=== PATIENT | female | born 1960 | race Caucasian/White ===

== ENCOUNTER 2016-04-14 17:00 | Emergency (ER) | payer OTHER ==
[~2016-04-14] VITALS: Ht 167.6 cm; Wt 89.8 kg
[~2016-04-14 17:00] MED LIST: AMBIEN (MONOGRAP5 MG PO; AMBIEN5 M1 PO; AMLODIPINE10 MG PO; ASPIRIN FOR CHI81 MG PO; BISACODYL10 MG PR; CALCIUM 600600 M1 PO; CARBIDOPA/LEVOD1 TA1 PO; CLONAZEPAM0.5 MG PO; CLOPIDOGREL75 MG PO; COLCHICINE0.6 MG PO; COQ10 IN OIL 101 SGL PO; COREG25 M1 PO; COZAAR50 M1 PO; DIOVAN320 MG PO; ESCITALOPRAM10 MG PO; ESCITALOPRAM20 MG PO; FERROUS SULFATE27 MG PO; HYDRALAZINE100 MG PO; HYDROXYCHLOROQ200 M1 PO; HYDROXYCHLOROQ200 MG PO; KEPPRA500 M1 PO; LASIX40 MG PO; LESCOL XL80 MG PO; LEVSIN0.125 MG PO; LIPITOR40 M1 PO; LIPOFLAVONOID1 TAB PO; MERCAPTOPURINE50 MG PO; MULTIVITAMIN1 TAB PO; NEUPRO3 MG/24 HR TOP; NORVASC10 M1 PO; NOVOLOG100 U/ML SC; PERCOCET 325 MG1 TA2 PO; PROAIR HFA8.5 GM INH; PROBIOTICA100 Millio PO; PROTONIX40 MG PO; RENAGEL 800MG800 MG PO; REQUIP1 MG PO; SYMBICORT 80/4.1 PUF INH; SYNTHROID0.088 MG PO; SYNTHROID88 MCG PO; TRANDATE-NORMO200 MG PO; UROCIT-K 1010 MEQ PO; UROCIT-K15 MEQ PO; VICTOZA6 MG/ML SC; VITAMIN B11000 MCG/M IM; VITAMIN B625 MG PO; VITAMIN C500 M3 PO; VITAMIN D1000 IU PO; VITAMIN D5000 IU PO; VITAMIN D50000 IU PO
--- NOTE | 2016-04-14 17:03 | ED UPPER/LOWER EXTREMITY COMPL ---
See Addendum History of Present Illness General Chief Complaint: Lower Extremity Problems Stated Complaint: BIBA FOR KNEE PAIN Source: patient, family, old records Exam Limitations: no limitations Vital Signs & Intake/Output Vital Signs & Intake/Output Vital Signs Date Time Temp Pulse Resp B/P Pulse O2 O2 Flow FiO2 Ox Delivery Rate 04/15 1017 97.1 64 16 128/76 97 Room Air 04/15 0828 135/70 04/15 0806 97.0 74 134/85 04/15 0806 134/85 04/15 0743 97.6 66 18 134/85 96 04/14 2239 97.8 52 18 145/64 95 Room Air 04/14 2133 Room Air 04/14 2030 98.6 54 18 158/70 95 Room Air 04/14 1804 97 Room Air 04/14 1704 97.6 57 16 130/83 97 Room Air ED Intake and Output 04/15 0000 04/14 1200 Intake Total Output Total Balance Patient 198 lb Weight Allergies Coded Allergies: Penicillins (Intermediate, RASH 06/05/15) erythromycin base (Intermediate, ANAPHYLAXIS 06/05/15) vancomycin (Intermediate, WHEEZING 06/05/15) Reconcile Medications Albuterol Sulfate (Proair Hfa) 0.09 MG/Actuation GA 1-2 INH INH Q4-6 PRN PRN SOB (Reported) Amlodipine (Norvasc 10MG) 10 MG TAB 1 TAB PO DAILY HYPERTENSION (Reported) Ascorbate Calcium (Vitamin C) 500 MG TABLET 1 TAB PO D HEALTH SUPPLEMENT ( Reported) Atorvastatin Calcium (Lipitor) 40 MG TAB 1 TAB PO 17:00 CHOLESTEROL (Reported ) Calcium Carbonate (Calcium) 600 MG (1,500 MG) TABLET 1 TAB PO D HEALTH SUPPLEMENT (Reported) Carbidopa/Levodopa (Carbidopa-Levodopa 25-100 Tab) 25 MG/100 MG TAB 1 TAB PO TID RESTLESS LEG SYNDROME (Reported) Carvedilol (Coreg) 25 MG TAB 1 TAB PO BID HYPERTENSION (Reported) CHOLECALCIFEROL (VITAMIN D3) (Vitamin D3) 5,000 IU CAP 1 CAP PO BID VITMIN D DEFICIENCY (Reported) Cholecalciferol (Vitamin D3) (Vitamin D) 10,000 UNIT CAPSULE 1 TAB PO Q 2 WEEKS HEALTH SUPPLEMENT (Reported) Clonazepam 0.5 MG TAB 1 TAB PO AT BEDTIME INSOMNIA (Reported) Escitalopram Oxalate 20 MG TAB 1 TAB PO DAILY DEPRESSION (Reported) Hydralazine Hydrochloride (Hydralazine) 100 MG TAB 1 TAB PO BID HYPERTENSION (Reported) Hydroxychloroquine Sulfate 200 MG TAB 1 TAB PO DAILY SLE (Reported) Levetiracetam (Keppra) 500 MG TAB 1 TAB PO DAILY SEIZURE (Reported) Levothyroxine Sodium (Synthroid) 0.088 MG TAB 0.088 MG PO DAILY AC HYPOTHYROID (Reported) Losartan (Cozaar) 50 MG TAB 1 TAB PO DAILY HYPERTENSION (Reported) Multivitamin (Multivitamins) 1 EACH CAPSULE 1 TAB PO D HEALTH SUPPLEMENT ( Reported) ROPINIROLE HCL (Requip) 1 MG TAB 1 TAB PO AT BEDTIME RESTLESS LEG SYMDROME ( Reported) Rotigotine (Neupro) 3 MG/24 HOUR PATCH.TD24 1 PATCH EXT D RESTLESS LEGS ( Reported) Ubidecarenone (Co Q-10) 100 MG CAPSULE 1 TAB PO D HEALTH SUPPLEMENT (Reported ) Zolpidem Tartrate 10 MG TAB 1 TAB PO AT BEDTIME INSOMNIA (Reported) Triage Nurses Notes Reviewed? yes Onset: Abrupt Duration: constant Timing: recent history Severity: severe Severity Numbers: 10 HPI: Patient is a 55-year-old female who with a past medical history of hypothyroidism, lupus, CKD, hypertension, stroke, seizure, depression, restless leg syndrome, asthma and a total knee replacement to left knee in which patient received 2 left knee revisions performed by Dr. TODD in which patient states that she also had a syncopal episode approximately 18 months ago where she fractured her left hip in which the surgical intervention was performed by orthopedic DR. HUBER MD. Patient states that since she's had left knee and hip instability and discomfort and pain in which yesterday at 5 AM at her house she was ambulating she misstepped and fell to the left lateral aspect of her body striking the left leg and left upper extremity and left aspect of her head to the ground and table. Patient denies any preceding episode of dizziness or lightheaded sensation. Denies any loss of consciousness. Patient did follow up with orthopedic DR. EBONY MD yesterday in his office and received x-rays of the left lower extremity and left upper extremity with unremarkable acute findings. Patient was given Tylenol with Codeine which has not relieved her symptoms. Patient was brought in by ambulance for no relief of pain. Patient denies any fall since her evaluation by orthopedic doctor. Patient currently denies any illness and is otherwise without complaints Patient is very concerned of living alone and having to use approximate 20 steps to enter her private residence and due to her significant pain symptoms. (AMARA OLEARY) Past History Travel History Traveled to [place] past 21 day No Medical History Any Pertinent Medical History? see below for history Neurological: restless leg syndrome Cardiovascular: hypertension, Renal artery stenosis; s/p stent; one functioning kidney Renal: 1 KIDNEY Musculoskeletal: LEFT KNEE REPLACMENT X 2 Blood Disorders: LUPUS Other Medical Hx: LUCA SKIN CANCER, SLE History of MRSA: No History of VRE: No History of CDIFF: No Pneumonia Vaccine: 01/14/13 Influenza Vaccine: 12/13/14 Surgical History Surgical History: cholecystectomy, knee replacement, open reduction and internal fixation of the left hip BACK SURGERY Psychosocial History Who do you live with Patient/Self Services at Home Nursing, Occupational Therapy, Physical Therapy, Speech Therapy What is your primary language [place] Family History Family History, If Any: FATHER, , Age 60+. FH: myocardial infarction BROTHER CABG UNCLE FH: lung cancer MOTHER (DIABETES, BRAIN TUMOR). Relation not specified for: FHx: diabetes mellitus Hx Contributory? No (AMARA OLEARY) Review of Systems Review of Systems Constitutional: Reports: no symptoms. EENTM: Reports: no symptoms. Respiratory: Reports: no symptoms. Cardiovascular: Reports: no symptoms. Gastrointestinal/Abdominal: Reports: no symptoms. Genitourinary: Reports: no symptoms. Musculoskeletal: Reports: see HPI, joint pain, muscle pain. Skin: Reports: no symptoms. Neurological/Psychological: Reports: no symptoms. Hematologic/Endocrine: Reports: no symptoms. Immunological: Reports: no symptoms. All Other Systems: Reviewed and Negative (AMARA OLEARY) Physical Exam Physical Exam General Appearance: moderate distress Neurologic/Tendon: normal sensation, normal tendon functions, responds to pain, no evidence tendon injury, no pulse deficit Skin: intact, warm/dry Comments: HEENT: extraocular motion intact, no nystagmus. Pupils equally round and reactive to light and accommodation. Nose is atraumatic. External auditory canal and Tympanic membranes clear. Pharynx normal. No swelling or edema. Head-contusion noted to left lateral aspect of orbit no step-off deformity Neck: Supple, no lymphadenopathy, normal range of motion without pain or tenderness Back: Nontender, no CVA tenderness. Cardiovascular: Regular rate and rhythms no murmurs rubs or gallops, normal JVP Respiratory: Chest nontender. No respiratory distress.breath sounds clear to auscultation bilaterally Abdomen: Soft, nontender nondistended, no appreciable organomegaly. Normal bowel sounds. No ascites Extremity: normal and equal pulses. Left upper extremity generalized severe point tenderness noted, decreased active range of motion noted Dermatomes intact radial pulse +2 Left lower extremity generalized severe point tenderness noted, patient unable to perform straight leg raise decreased generalized active range of motion noted due to pain No pedal edema NON- tender gastrocnemius Dermatomes intact radial pulse +2 capillary refill intact less than 2 seconds Neuro: Alert oriented x3, motor sensory normal, Skin: No appreciable rash on exposed skin, skin is warm and dry. Psych: Mood and affect is normal, memory and judgment is normal. (EZIO HERNANDEZ,AMARA) Progress Differential Diagnosis: arterial insufficiency, cellulitis, CHF, compartment syndrome, contusion, dislocation, DVT, fracture, gout, septic arthritis, sprain, tendon injury Plan of Care: Orders Procedure Date/time Status Regular Diet 04/15 L Active CASE MANAGEMENT CONSULT 04/15 0704 Active PT Evaluate & Treat 04/15 0700 Active BASIC METABOLIC PANEL 04/15 0700 Complete Theraputic Activities 15 Min 04/15 UNK Complete PT EVAL MOD COMPLEX 30 MIN 04/15 UNK Complete Mitchell, Insertion/Removal/Asses 04/14 202 Active COMPREHENSIVE METABOLIC PANEL 04/14 1731 Complete CBC WITHOUT DIFFERENTIAL 04/14 1731 Complete EKG 04/14 1731 Active Current Medications Sig/Kathy Start time Last Medication Dose Stop Time Status Admin Morphine Sulfate 6 MG ONCE ONE 04/14 194 CAN (Morphine) 04/14 1946 Laboratory Tests 04/15/16 0642: Anion Gap 14, Estimated GFR 18 L, BUN/Creatinine Ratio 19.6, Glucose 67, Calcium 7.9 L 04/14/16 1756: Anion Gap 14, Estimated GFR 18 L, BUN/Creatinine Ratio 19.6, Glucose 102 H, Calcium 8.0 L, Total Bilirubin 0.8, AST 13 L, ALT 15, Alkaline Phosphatase 83, Total Protein 5.7 L, Albumin 2.8 L, Globulin 2.9, Albumin/Globulin Ratio 1.0 L, CBC w Diff NO MAN DIFF REQ, RBC 3.66 L, MCV 82.1, MCH 26.9 L, RDW 16.7 H, MPV 8.9, Gran % 85.2 H, Lymphocytes % 2.8 L, Monocytes % 11.4 H, Eosinophils % 0.5, Basophils % 0.1, Absolute Granulocytes 7.0 H, Absolute Lymphocytes 0.2 L, Absolute Monocytes 0.9 H, Absolute Eosinophils 0, Absolute Basophils 0, PUBS MCHC 32.8 L Patient currently is neurovascular intact to left upper and lower extremities. I discussed with Dr. Quigley patient's evaluation yesterday in which she received left upper extremity x-rays with unremarkable findings and only a left knee x- ray with unremarkable findings. Patient had unremarkable images for patients pain complaints. Patient was unable to move her left lower extremity and left upper extremity due to severe pain. Pain medications was administered in the IV which patient did state that she had relief however still unable to move. Patient was staying overnight in the emergency room and will be reevaluated by physical therapy for possible long -term placement. Discussed disposition plan with case management who evaluate patient as well tomorrow when physical therapy assesses patient. Patient currently is in no apparent distress resting comfortably on her bed. Discussed disposition plan with patient and family member who agrees Discussed hand off with Dr. Cornell who is aware of disposition and plan physical therapy was ordered. (EZIO HERNANDEZ,AMARA) Diagnostic Imaging: Viewed by Me: Radiology Read, CT Scan. Radiology Impression: no acute abnormality Initial ED EKG: SINUS RHYTHM NOTED 55 BPM WITH RBBB Hand-Off Endorsed To: TAQUERIA CORNELL MD Endorsed Time: 0100 Pending: consult Comments: PATIENT: BHARATI VELAZQUEZ PRESENT AGE: 55 PATIENT ACCOUNT NO: [id number] : 59 LOCATION: [facility] ORDERING PHYSICIAN: AMARA HERNANDEZ SERVICE DATE: 04/14/16 EXAM TYPE: CAT - CT PELVIS WO IV CONTRAST EXAMINATION: CT PELVIS WITHOUT CONTRAST CLINICAL INFORMATION: Fall. Hip pain. Pelvic pain. COMPARISON: CT scan abdomen pelvis 04/02/2014. Abdomen, 08/05/2015. TECHNIQUE: Axial images obtained through the pelvis. Coronal and sagittal reformatted images performed at CT scanner DLP: 1471.73 mGy-cm. FINDINGS: Status post ORIF with gamma nail of the left hip. There is streak artifact from the orthopedic hardware. No acute fracture. Left hip fracture is healed. There is old ossifications adjacent to the inferior humeral head and neck and adjacent to the greater trochanter. No focal fluid collections or hematoma. No fracture of the pelvis or right hip. No focal bone lesion. Joint spaces of hips are normal. Sacroiliac joints are normal. There is degenerative disc disease of lower lumbar spine with disc height narrowing and facet joint arthrosis. Vacuum disc phenomena L4-L5. No intrapelvic abnormality. No abnormally dilated bowel loops. No free air or free fluid. Bladder is unremarkable. Vascular wall calcifications of aorta and iliac vessels. IVC filter present partially imaged. IMPRESSION: Status post ORIF left hip. No acute fracture. PATIENT: BHARATI VELAZQUEZ PRESENT AGE: 55 PATIENT ACCOUNT NO: [id number] : 58 LOCATION: [facility] ORDERING PHYSICIAN: AMARA HERNANDEZ SERVICE DATE: 04/14/16 EXAM TYPE: RAD - XRY-ANKLE 3 OR MORE VIEWS L EXAMINATION: XR ANKLE, LEFT CLINICAL INFORMATION: Fall. Left leg pain. COMPARISON: None TECHNIQUE: AP, lateral, and mortise views of the left ankle. FINDINGS: No fracture. No dislocation. Ankle mortise is congruent. IMPRESSION: No acute abnormality of the left ankle. (AMARA OLEARY) Departure Departure Disposition: STILL A PATIENT Condition: Stable Clinical Impression Primary Impression: Left leg pain Secondary Impressions: Facial contusion, Fall, Left upper arm pain, Renal failure Referrals: AMIRAH ELAINE,FRANCISCO Stover (PCP/Family) Departure Forms: Customer Survey General Discharge Information (AMARA OLEARY) PA/PRODUCTION LINE SOLDERER Co-Sign Statement Statement: ED Attending supervision documentation- [] I saw and evaluated the patient. I have also reviewed all the pertinent lab results and diagnostic results. I agree with the findings and the plan of care as documented in the PA's/PRODUCTION LINE SOLDERER's documentation. X] I have reviewed the ED Record and agree with the PA's/PRODUCTION LINE SOLDERER's documentation. [] Additions or exceptions (if any) to the PAs/PRODUCTION LINE SOLDERER's note and plan are summarized below: [] (HERON ELAINE,TAQUERIA Israel) PA/PRODUCTION LINE SOLDERER Co-Sign Statement Statement: ED Attending supervision documentation- [X] I saw and evaluated the patient. I have also reviewed all the pertinent lab results and diagnostic results. I agree with the findings and the plan of care as documented in the PA's/PRODUCTION LINE SOLDERER's documentation. [X] I have reviewed the ED Record and agree with the PA's/PRODUCTION LINE SOLDERER's documentation. [] Additions or exceptions (if any) to the PAs/PRODUCTION LINE SOLDERER's note and plan are summarized below: [Patient continues to have severe pain in her left knee. Patient attempted to ambulate with nursing this morning but she was unable to bear any weight on her left leg. Patient has had 2 prior knee replacements and had x-rays at Celso Simpson MD's office earlier this week for this pain. Patient had fallen. Patient hit her head when she fell 3 days ago. Denies any loss of consciousness. Patient denies any headache or blurry vision after the fall. Patient did hit her head on a chair on the way down and she has ecchymosis above her left eye. There is no step off. Her pupils are equal and reactive to light. Patient is waiting case management evaluation. Given IV morphine for pain control.] (MAURICIO ELAINE,ANABEL Romero) PA/PRODUCTION LINE SOL[employer]ER Co-Sign Statement Statement: ED Attending supervision documentation- [] I saw and evaluated the patient. I have also reviewed all the pertinent lab results and diagnostic results. I agree with the findings and the plan of care as documented in the PA's/PRODUCTION LINE SOLDERER's documentation. [X] I have reviewed the ED Record and agree with the PA's/PRODUCTION LINE SOLDERER's documentation. [] Additions or exceptions (if any) to the PAs/PRODUCTION LINE SOLDERER's note and plan are summarized below: [] (AURELIANO ELAINE,PORSCHE)
[2016-04-14 18:07] LABS: ABSOLUTE BASOPHIL COUNT 0 /CUMM (0.0-0.2); ABSOLUTE EOSINOPHIL COUNT 0 /CUMM (0.0-0.7); ABSOLUTE LYMPH COUNT 0.2 /CUMM (1.2-3.4); ABSOLUTE MONOCYTE COUNT 0.9 /CUMM (0.10-0.60); BASOPHIL % 0.1 % (0.0-2.0); EOSINOPHIL % 0.5 % (0-5); MEAN CORPUSCULAR HGB 26.9 PG (27.0-31.0); MEAN CORPUSCULAR HGB CONC 32.8 G/DL (33.0-37.0); MEAN CORPUSCULAR VOLUME 82.1 FL (81.0-99.0); MEAN PLATELET VOLUME 8.9 FL (7.4-10.4); PLATELET COUNT 229 /CUMM (130-400); RBC DISTRIBUTION WIDTH 16.7 % (11.5-14.5); RED BLOOD CELL CT 3.66 /CUMM (4.20-5.40); WHITE BLOOD CELL COUNT 8.3 /CUMM (4.8-10.8)
[2016-04-14 18:21] LABS: GRANULOCYTE % 85.2 % (42.2-75.2)
[2016-04-14] MEDS ORDERED: MULTIVITAMINS1 EAC8 PO (18:47)
[2016-04-14] MEDS ORDERED: CALCIUM600 M2 PO (18:50)
[2016-04-14] MEDS ORDERED: CO Q-10100 MG PO (18:51)
[2016-04-14] MEDS ORDERED: NEUPRO1 EAC5 EXT (18:57)
[2016-04-14] MEDS ORDERED: VITAMIN D10000 UNIT PO (18:59)
[2016-04-14] MEDS ORDERED: VITAMIN C500 M6 PO (19:00)
--- NOTE | 2016-04-14 19:09 | RADIOLOGY REPORT ---
EXAMINATION: XR ANKLE, LEFT CLINICAL INFORMATION: Fall. Left leg pain. COMPARISON: None TECHNIQUE: AP, lateral, and mortise views of the left ankle. FINDINGS: No fracture. No dislocation. Ankle mortise is congruent. IMPRESSION: No acute abnormality of the left ankle.
--- NOTE | 2016-04-14 20:02 | CT SCAN REPORT ---
EXAMINATION: CT PELVIS WITHOUT CONTRAST CLINICAL INFORMATION: Fall. Hip pain. Pelvic pain. COMPARISON: CT scan abdomen pelvis 04/02/2014. Abdomen, 08/05/2015. TECHNIQUE: Axial images obtained through the pelvis. Coronal and sagittal reformatted images performed at CT scanner DLP: 1471.73 mGy-cm. FINDINGS: Status post ORIF with gamma nail of the left hip. There is streak artifact from the orthopedic hardware. No acute fracture. Left hip fracture is healed. There is old ossifications adjacent to the inferior humeral head and neck and adjacent to the greater trochanter. No focal fluid collections or hematoma. No fracture of the pelvis or right hip. No focal bone lesion. Joint spaces of hips are normal. Sacroiliac joints are normal. There is degenerative disc disease of lower lumbar spine with disc height narrowing and facet joint arthrosis. Vacuum disc phenomena L4-L5. No intrapelvic abnormality. No abnormally dilated bowel loops. No free air or free fluid. Bladder is unremarkable. Vascular wall calcifications of aorta and iliac vessels. IVC filter present partially imaged. IMPRESSION: Status post ORIF left hip. No acute fracture.
--- NOTE | 2016-04-15 09:04 | RADIOLOGY REPORT ---
EXAMINATION: XR KNEE, LEFT CLINICAL INFORMATION: Pain post fall. Fracture or dislocation. COMPARISON: Knee x-ray February 2014 TECHNIQUE: AP and cross-table lateral views of the left knee. FINDINGS: The exam is limited as the femoral and tibial stems are not fully included in the field of view of the examination. There is a moderate joint effusion. The patella appears anteriorly displaced with the distal end of the patella tilted slightly posteriorly, perhaps related to the effusion. Long-stem left total knee arthroplasty noted with the proximal end of the femoral stem and the distal aspect of the tibial stem outside of the field of view of the examination. There is some calcific density noted posteriorly, unchanged, which could reflect bone cement or capsular calcification, probably without any clinical significance. In the field of view imaged, I do not see a fracture or suspicious area of periprosthetic lucency. IMPRESSION: Slightly limited evaluation of the left total knee arthroplasty as the femoral and tibial stems are not entirely included in the field of view of the examination. Recommend repeat examination with a larger field of view. There is a moderate joint effusion which has increased compared to prior. Position of the patella is likely related to the joint effusion rather than injury to the quadriceps tendon.
[2016-04-15 14:06] VITALS: BP 121/58
== END 2016-04-15 15:08 ==
LOC: ERH 17:00
PROVIDERS: Physician Assistant
DX: S00.83XA Contusion of other part of head, initial encounter (principal); N19 Unspecified kidney failure; M79.622 Pain in left upper arm; M79.605 Pain in left leg; X58.XXXA Exposure to other specified factors, initial encounter
CPT/HCPCS: 73560-LT; 73610-LT; 93005; 93010; 96372; 97162-GP; 97530-GP

== ENCOUNTER 2016-04-24 11:28 | Emergency (ER) | payer OTHER ==
[~2016-04-24] VITALS: Ht 172.7 cm; Wt 94.3 kg
[~2016-04-24 11:28] MED LIST changes: +CALCIUM600 M2 PO; +CO Q-10100 MG PO; +MULTIVITAMINS1 EAC8 PO; +NEUPRO1 EAC5 EXT; +VITAMIN C500 M6 PO; +VITAMIN D10000 UNIT PO
--- NOTE | 2016-04-24 11:58 | ED GENERAL ADULT ---
History of Present Illness General Chief Complaint: General Adult Stated Complaint: "FACIAL TWITCHING" Source: patient, family, old records, EMS Exam Limitations: no limitations Vital Signs & Intake/Output Vital Signs & Intake/Output Vital Signs Date Time Temp Pulse Resp B/P Pulse O2 O2 Flow FiO2 Ox Delivery Rate 04/24 1338 96.5 55 18 165/71 98 Room Air 04/24 1153 Room Air 04/24 1132 97.5 58 16 138/65 98 Room Air Room Air Allergies Coded Allergies: Penicillins (Intermediate, RASH 06/05/15) erythromycin base (Intermediate, ANAPHYLAXIS 06/05/15) vancomycin (Intermediate, WHEEZING 06/05/15) Reconcile Medications Albuterol Sulfate (Proair Hfa) 0.09 MG/Actuation AG 1-2 INH INH Q4-6 PRN PRN SOB (Reported) Amlodipine (Norvasc 10MG) 10 MG TAB 1 TAB PO DAILY HYPERTENSION (Reported) Ascorbate Calcium (Vitamin C) 500 MG TABLET 1 TAB PO D HEALTH SUPPLEMENT ( Reported) Atorvastatin Calcium (Lipitor) 40 MG TAB 1 TAB PO 17:00 CHOLESTEROL (Reported ) Calcium Carbonate (Calcium) 600 MG (1,500 MG) TABLET 1 TAB PO D HEALTH SUPPLEMENT (Reported) Carbidopa/Levodopa (Carbidopa-Levodopa 25-100 Tab) 25 MG/100 MG TAB 1 TAB PO TID RESTLESS LEG SYNDROME (Reported) Carvedilol (Coreg) 25 MG TAB 1 TAB PO BID HYPERTENSION (Reported) CHOLECALCIFEROL (VITAMIN D3) (Vitamin D3) 5,000 IU CAP 1 CAP PO BID VITMIN D DEFICIENCY (Reported) Cholecalciferol (Vitamin D3) (Vitamin D) 10,000 UNIT CAPSULE 1 TAB PO Q 2 WEEKS HEALTH SUPPLEMENT (Reported) Clonazepam 0.5 MG TAB 1 TAB PO AT BEDTIME INSOMNIA (Reported) Escitalopram Oxalate 20 MG TAB 1 TAB PO DAILY DEPRESSION (Reported) Hydralazine Hydrochloride (Hydralazine) 100 MG TAB 1 TAB PO BID HYPERTENSION (Reported) Hydroxychloroquine Sulfate 200 MG TAB 1 TAB PO DAILY SLE (Reported) Levetiracetam (Keppra) 500 MG TAB 1 TAB PO DAILY SEIZURE (Reported) Levothyroxine Sodium (Synthroid) 0.088 MG TAB 0.088 MG PO DAILY AC HYPOTHYROID (Reported) Losartan (Cozaar) 50 MG TAB 1 TAB PO DAILY HYPERTENSION (Reported) Multivitamin (Multivitamins) 1 EACH CAPSULE 1 TAB PO D HEALTH SUPPLEMENT ( Reported) ROPINIROLE HCL (Requip) 1 MG TAB 1 TAB PO AT BEDTIME RESTLESS LEG SYMDROME ( Reported) Rotigotine (Neupro) 3 MG/24 HOUR PATCH.TD24 1 PATCH EXT D RESTLESS LEGS ( Reported) Ubidecarenone (Co Q-10) 100 MG CAPSULE 1 TAB PO D HEALTH SUPPLEMENT (Reported ) Zolpidem Tartrate 10 MG TAB 1 TAB PO AT BEDTIME INSOMNIA (Reported) Triage Note: BIBA FOR FACIAL TWITCHING THAT HAS BEEN INCREASING IN OCCURRENCES. 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 FALL 1 WEEK AGO WITH INJURY TO LEFT SIDE OF BODY AND WENT TO REHAB FOR A FEW DAYS AFTER FALLS. STATES SHE DEVELOPED FACIAL TWITCHING ON RIGHT FACE WITH NUNBNESS IN TOUNGE. PCP ORDERED AN MRI BUT THIS HAS NOT YET BEEN DONE DUE TO NO APPROVAL FROM INSURANCE COMPANY. PT STATES PCP TOLD HER TO COME TO THE ED FOR MRI. EMS STAFF STATE THEY WITNESSED FACIAL TWITCHING LASTING 10-15 SECONDS WHILE IN AMBULANCE. CURRENTLY AWAKE, ALERT AND ORIENTED. IN NO DISTRESS. NO TWITCHING NOTED AT PRESENT BODY Triage Nurses Notes Reviewed? yes Onset: Gradual Duration: worse persistent since (1 week) Timing: recent history Injury Environment: home Severity: moderate Severity Numbers: 8 No Modifying Factors: none HPI: This is a 55-year-old female with history of lupus, CVA 1 year ago resenting to the emergency Department chief complaint of facial twitching on the right side that spend coming going over the past 1 week. She was recently seen and evaluated here in the emergency department for a mechanical fall. She was discharged to a nursing facility where she completed rehabilitation and was discharged home. She reports over the past 2 days that itching has become worse. Chest reports the right side of her tongue goes numb. She saw her neurologist yesterday who was going to set her up for an MRI and told her to increase the dose of Keppra. Patient reports that she started increasing the dose this morning. Symptoms became worse she called the on-call physician today and they recommended that she come to the emergency department for evaluation. Patient denying any confusion during the episodes. She she will Hertha the episodes come and go every half hour. They last a few seconds and then resolved. Denies any nausea vomiting fevers or chills chest pain or shortness of breath. Denies any confusion. (SARI MICHAELS) Past History Travel History Traveled to [place] past 21 day No Medical History Any Pertinent Medical History? 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 Other Medical Hx: LUCA SKIN CANCER, SLE History of MRSA: No History of VRE: No History of CDIFF: No Pneumonia Vaccine: 01/14/13 Influenza Vaccine: 12/13/14 Surgical History Surgical History: cholecystectomy, knee replacement, open reduction and internal fixation of the left hip BACK SURGERY Psychosocial History Who do you live with Patient/Self Services at Home Nursing, Occupational Therapy, Physical Therapy, Speech Therapy What is your primary language [place] Tobacco Use: Never used ETOH Use: denies use Illicit Drug Use: denies illicit drug use Family History Family History, If Any: FATHER, , Age 60+. FH: myocardial infarction BROTHER CABG UNCLE FH: lung cancer MOTHER (DIABETES, BRAIN TUMOR). Relation not specified for: FHx: diabetes mellitus Hx Contributory? No (SARI MICHAELS) Review of Systems Review of Systems Constitutional: Reports: no symptoms. Comments Review of systems: See HPI, All other systems negative. Constitutional, no chills fever or weight loss HEENT: No visual changes no sore throat no congestion Cardiovascular: No chest pain ,palpitation , orthopnea or ankle swelling Skin, no jaundice no rashes Respiratory: No dyspnea cough sputum or hemoptysis GI: No nausea no vomiting : No dysuria No hematuria Muscle skeletal: no back pain, no neck pain, Neurologic: no confusion Psych: No stress anxiety or depression,. Heme/endocrine: No bruising no bleeding no polyuria or polydipsia Immunology: No splenectomy or history of AIDS (SARI MICAHELS) Physical Exam Physical Exam General Appearance: well developed/nourished, no apparent distress, alert, awake , comfortable Comments: Well-developed well-nourished person in no acute distress HEENT: Normal EENT exam, extraocular motion intact, no nystagmus. Pupils equally round and reactive to light and accommodation. Nose is atraumatic. External auditory canal and Tympanic membranes clear. Pharynx normal. No swelling or edema. Neck: Supple, no lymphadenopathy, normal range of motion without pain or tenderness Back: Nontender, no CVA tenderness. Full range of motion Cardiovascular: Regular rate and rhythms no murmurs rubs or gallops, normal JVP Respiratory: Chest nontender. No respiratory distress.breath sounds clear to auscultation bilaterally Abdomen: Soft, nontender nondistended, no appreciable organomegaly. Normal bowel sounds. No ascites Extremity: No edema, no calf tenderness to palpation, normal and equal pulses. Muscular strength is 5 out of 5 in all extremity. [employer] strength is equal and symmetrical bilaterally. Neuro: Alert oriented x3, motor sensory slightly diminished on bilateral sides of the face, cranial nerves II through XII grossly intact, except for deficit to cranial nerve VII residual from her stroke one year ago, right side of the face does not go up with smiling. Skin: No appreciable rash on exposed skin, skin is warm and dry. Psych: Mood and affect is normal, memory and judgment is normal. Core Measures ACS in differential dx? No CVA/TIA Diagnosis: No Severe Sepsis Present: No Septic Shock Present: No (MONICA HERNANDEZ,SARI) Progress Differential Diagnoses I considered the following diagnoses in my evaluation of the patient: Focal seizures, CVA, TIA, electrolyte abnormality, dehydration, trigeminal neuralgia Plan of Care: Orders Procedure Date/time Status EKG 04/24 1327 Active COMPREHENSIVE METABOLIC PANEL 04/24 1158 Complete CBC WITHOUT DIFFERENTIAL 04/24 1158 Complete Laboratory Tests 04/24/16 1210: Anion Gap 12, Estimated GFR 16 L, BUN/Creatinine Ratio 17.7, Glucose 128 H, Calcium 8.1 L, Total Bilirubin 0.7, AST 14, ALT 22, Alkaline Phosphatase 86, Total Protein 6.1 L, Albumin 3.1 L, Globulin 3.0, Albumin/Globulin Ratio 1.0 L, CBC w Diff NO MAN DIFF REQ, RBC 3.84 L, MCV 82.1, MCH 26.2 L, RDW 18.0 H, MPV 7.9, Gran % 83.9 H, Lymphocytes % 4.6 L, Monocytes % 8.1, Eosinophils % 2.7, Basophils % 0.7, Absolute Granulocytes 5.3, Absolute Lymphocytes 0.3 L, Absolute Monocytes 0.5, Absolute Eosinophils 0.2, Absolute Basophils 0, PUBS MCHC 31.9 L Diagnostic Imaging: Viewed by Me: CT Scan. Discussed w/RAD: CT Scan. Radiology Impression: PATIENT: BHARATI VELAZQUEZ PRESENT AGE: 55 PATIENT ACCOUNT NO: [id number] : 59 LOCATION: [facility] ORDERING PHYSICIAN: SARI HERNANDEZ SERVICE DATE: 04/24/16 EXAM TYPE: CAT - CT HEAD WO IV CONTRAST EXAMINATION: CT HEAD WITHOUT CONTRAST CLINICAL INFORMATION: Focal seizures. COMPARISON: CT brain and MRI brain report 2013. TECHNIQUE: Contiguous axial imaging was performed from the skull base to vertex without intravenous administration of contrast. DLP: 600 mGy-cm. FINDINGS : There is no evidence of acute intracranial hemorrhage or territorial infarction. There is a hypodensity in the left frontal cortical gyrus and deep white matter of left parietal lobe probably old subacute or old infarct. No abnormal mass effect or midline shift is seen. Domínguez to white matter differentiation is well preserved. No extra-axial fluid collections are identified. The ventricles are normal in size. There is no abnormal attenuation within the brain parenchyma. The osseous structures and soft tissues are normal. The mastoid air cells and visualized portions of the paranasal sinuses are well aerated. IMPRESSION: No acute intracranial bleed or acute infarct. There is focal hypodensity seen in the left frontal lobe cortical sulci and deep white matter left parietal lobe most likely old insult. Patient had area of intraparenchymal hemorrhage in this region on the previous study from 2013. Initial ED EKG: NSR Prior EKG: unchanged Comments: 04/24/2016 12:01:52 PM on arrival patient is just no focal deficits besides residual deficit from old CVA. Positive for to witness one episode of the focal twitching on the right of the face. It appears to be a focal seizure. We will obtain CT scan of the head, MRI is here today. I will speak with on-call neurologist , Dr. funez. Patient resting comfortably at this time. 04/24/2016 1:52:37 PM patient informed of all imaging results and laboratory results. No acute abnormalities of the CT scan. We will medicate patient with IV Keppra per Dr. funez. Patient to increase Her dosing to 500 mg twice a day. She'll follow-up with them in the office, she'll be scheduled for an outpatient MRI. (SARI MICHAELS) Departure Departure Time of Disposition: 1342 Disposition: HOME OR SELF CARE Condition: Stable Clinical Impression Primary Impression: Seizures Referrals: AMIRAH ELAINE,FRANCISCO Stover (PCP/Family) Additional Instructions: Follow-up with your neurologist on Tuesday. Call to make an appointment. Increase Keppra dosing to 500 mg twice a day. Return for worsening symptoms or concerns. It was a pleasure treating you today. Departure Forms: Customer Survey General Discharge Information (SARI MICHAELS) PA/DATA ANALYST REPORT WRITER Co-Sign Statement Statement: ED Attending supervision documentation- x I saw and evaluated the patient. I have also reviewed all the pertinent lab results and diagnostic results. I agree with the findings and the plan of care as documented in the PA's/DATA ANALYST REPORT WRITER's documentation. [] I have reviewed the ED Record and agree with the PA's/DATA ANALYST REPORT WRITER's documentation. [] Additions or exceptions (if any) to the PAs/DATA ANALYST REPORT WRITER's note and plan are summarized below: [] (LEAH ELAINE,JOSE) Critical Care Note Critical Care Note Critical Care Time: non-applicable (SARI MICHAELS)
[2016-04-24 12:20] LABS: ABSOLUTE BASOPHIL COUNT 0 /CUMM (0.0-0.2); ABSOLUTE EOSINOPHIL COUNT 0.2 /CUMM (0.0-0.7); ABSOLUTE GRANULOCYTE CT 5.3 /CUMM (1.4-6.5); ABSOLUTE LYMPH COUNT 0.3 /CUMM (1.2-3.4); ABSOLUTE MONOCYTE COUNT 0.5 /CUMM (0.10-0.60); BASOPHIL % 0.7 % (0.0-2.0); EOSINOPHIL % 2.7 % (0-5); HEMATOCRIT 31.5 % (37-47); MEAN CORPUSCULAR HGB 26.2 PG (27.0-31.0); MEAN CORPUSCULAR HGB CONC 31.9 G/DL (33.0-37.0); MEAN CORPUSCULAR VOLUME 82.1 FL (81.0-99.0); MEAN PLATELET VOLUME 7.9 FL (7.4-10.4); PLATELET COUNT 360 /CUMM (130-400); RED BLOOD CELL CT 3.84 /CUMM (4.20-5.40); WHITE BLOOD CELL COUNT 6.3 /CUMM (4.8-10.8)
[2016-04-24 12:33] LABS: GRANULOCYTE % 83.9 % (42.2-75.2)
--- NOTE | 2016-04-24 13:36 | CT SCAN REPORT ---
EXAMINATION: CT HEAD WITHOUT CONTRAST CLINICAL INFORMATION: Focal seizures. COMPARISON: CT brain and MRI brain report 03/20/2014. TECHNIQUE: Contiguous axial imaging was performed from the skull base to vertex without intravenous administration of contrast. DLP: 600 mGy-cm. FINDINGS: There is no evidence of acute intracranial hemorrhage or territorial infarction. There is a hypodensity in the left frontal cortical gyrus and deep white matter of left parietal lobe probably old subacute or old infarct. No abnormal mass effect or midline shift is seen. Domínguez to white matter differentiation is well preserved. No extra-axial fluid collections are identified. The ventricles are normal in size. There is no abnormal attenuation within the brain parenchyma. The osseous structures and soft tissues are normal. The mastoid air cells and visualized portions of the paranasal sinuses are well aerated. IMPRESSION: No acute intracranial bleed or acute infarct. There is focal hypodensity seen in the left frontal lobe cortical sulci and deep white matter left parietal lobe most likely old insult. Patient had area of intraparenchymal hemorrhage in this region on the previous study from 03/27/2014.
[2016-04-24 13:38] VITALS: BP 165/71
== END 2016-04-24 14:42 ==
LOC: ERH 11:28
PROVIDERS: Physician Assistant
DX: R56.9 Unspecified convulsions (principal); I10 Essential (primary) hypertension
CPT/HCPCS: 93005; 93010; 96374; J1953

== ENCOUNTER 2016-04-27 14:47 | Emergency (ER) | payer OTHER ==
[~2016-04-27] VITALS: Ht 172.7 cm; Wt 94.3 kg
--- NOTE | 2016-04-27 15:16 | ED AMS/SEIZURE/WEAK/DIZZY ---
History of Present Illness General Chief Complaint: Headache Stated Complaint: BIBA WITH SEIZURE,HEADACHE Source: patient, old records Exam Limitations: no limitations Vital Signs & Intake/Output Vital Signs & Intake/Output Vital Signs Date Time Temp Pulse Resp B/P Pulse O2 O2 Flow FiO2 Ox Delivery Rate 04/27 1845 97.8 61 18 176/72 97 04/27 1502 97 Room Air 04/27 1502 98.9 63 15 170/70 97 Room Air Allergies Coded Allergies: Penicillins (Intermediate, RASH 06/05/15) erythromycin base (Intermediate, ANAPHYLAXIS 06/05/15) vancomycin (Intermediate, WHEEZING 06/05/15) Reconcile Medications Albuterol Sulfate (Proair Hfa) 0.09 MG/Actuation GA 1-2 INH INH Q4-6 PRN PRN SOB (Reported) Amlodipine (Norvasc 10MG) 10 MG TAB 1 TAB PO DAILY HYPERTENSION (Reported) Atorvastatin Calcium (Lipitor) 40 MG TAB 1 TAB PO 17:00 CHOLESTEROL (Reported ) Carvedilol (Coreg) 25 MG TAB 1 TAB PO BID HYPERTENSION (Reported) Cholecalciferol (Vitamin D3) (Vitamin D) 10,000 UNIT CAPSULE 1 TAB PO Q 2 WEEKS HEALTH SUPPLEMENT (Reported) Lacosamide (Vimpat) 100 MG TABLET 1 TAB PO DAILY PRN SEIZURE Lacosamide (Vimpat) 100 MG TABLET 1 TAB PO BID SEIZURE Levetiracetam (Keppra) 500 MG TAB 1 TAB PO DAILY SEIZURE (Reported) Levothyroxine Sodium (Synthroid) 0.088 MG TAB 0.088 MG PO DAILY AC HYPOTHYROID (Reported) Losartan (Cozaar) 50 MG TAB 1 TAB PO DAILY HYPERTENSION (Reported) Multivitamin (Multivitamins) 1 EACH CAPSULE 1 TAB PO D HEALTH SUPPLEMENT ( Reported) Prednisone 10 MG TABLET 3 TAB PO BID TEMPORAL ARTERITIS Rotigotine (Neupro) 3 MG/24 HOUR PATCH.TD24 1 PATCH EXT D RESTLESS LEGS ( Reported) Zolpidem Tartrate 10 MG TAB 1 TAB PO AT BEDTIME INSOMNIA (Reported) Triage Note: PT BIBA FROM HOME FOR EVAL S/P A FOCAL LIKE SEIZURE. PT REPORTS SHE WAS SEEN AT THIS ER ON TUESDAY FOR SAME. STATES THAT SHE TURNS HER HEAD, JAW AND HEAD BEGIN TO SHAKE WITH SEIZURE ACTIVITY, BUT SHE REMAINS A/O X3 DURING EPISODES AND DOES NOT HAVE A POSTICAL EPISODE. STATES SHE CAN NOT CONTROL THE SHAKING. UPON ARRIVAL, PT IS A/O X3, REPORTS NO COMPLAINTS AT THIS TIME. SHE IS NOTED TO BE EMOTIONAL. STATES THAT THESE FOCAL LIKE SEIZURES BEGAN APPROX 1 WEEK AGO AFTER SUSTAINING AT FALL AT HOME AND HITTING HER LEFT FACE AND HEAD. PT HAD AN MRI AND EEG PERFORMED 04/26/16 AND SHE IS AWAITING RESULTS. PT CHANGED INTO GOWN AND PLACED IN POSITION OF COMFORT. Triage Nurses Notes Reviewed? yes Onset: Abrupt Duration: intermittent Timing: multiple episodes today Severity: moderate Severity Numbers: 5 HPI: Patient is a 55-year-old female who with a past medical history of hypothyroidism, lupus, CKD, hypertension, stroke, seizure, depression, restless leg syndrome, asthma and a total knee replacement to left knee in which patient received 2 left knee revisions performed by Dr. TODD in which patient states that she also had a syncopal episode approximately 18 months ago where she fractured her left hip in which the surgical intervention was performed by orthopedic DR. HUBER MD. patient also was evaluated at [facility] emergency room 3 days ago for concerns of right-sided facial twitching for 1 week. It was noted that earlier this month patient was evaluated by me for concerns of fall and unable to ambulate with CT and images were unremarkable however patient was discharged to nursing facility and completed her rehabilitation and was discharged home. Patient currently is on Keppra for her seizures prevention and which in the emergency room there was no focal deficits noted CT scan was obtained 3 days ago and resulted impression are noted below copied and paste IMPRESSION: No acute intracranial bleed or acute infarct. There is focal hypodensity seen in the left frontal lobe cortical sulci and deep white matter left parietal lobe most likely old insult. Patient had area of intraparenchymal hemorrhage in this region on the previous study from 03/27/2014. Patient presents to the emergency room brought in by ambulance for concerns of intermittent 4 day history of seizures that occur every hour. Patient states the last 24 hours the seizures have been every half hour, Family and patient state that when seizures do occur patient stairs in the space there is facial twitching and lip smacking and patient becomes post ictal. Patient was recently advised by neurologist to increase her Keppra from 500 daily to twice a day with no change in seizure-like activity. Neurologist is aware of this seizure-like activity Neurologist did order an EEG and an MRI performed yesterday with unknown results Patient does state that during these episodes of seizure-like activity she is fully aware of the signs and symptoms Patient denies any headaches, blurred vision, neck pain neck stiffness fever chills shortness of breath cough slurred speech facial droop (AMARA OLEARY) Past History Travel History Traveled to [place] past 21 day No Medical History Any Pertinent Medical History? 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 FH: myocardial infarction BROTHER CABG UNCLE FH: lung cancer MOTHER (DIABETES, BRAIN TUMOR). Relation not specified for: FHx: diabetes mellitus Hx Contributory? No (AMARA OLEARY) Review of Systems Review of Systems Constitutional: Reports: no symptoms. EENTM: Reports: no symptoms. Respiratory: Reports: no symptoms. Cardiovascular: Reports: no symptoms. GI: Reports: no symptoms. Genitourinary: Reports: no symptoms. Musculoskeletal: Reports: see HPI. Skin: Reports: no symptoms. Neurological/Psychological: Reports: see HPI, tremors. Denies: headache. Hematologic/Endocrine: Reports: no symptoms. Immunologic/Allergic: Reports: no symptoms. All Other Systems: Reviewed and Negative (AMARA OLEARY) Physical Exam Physical Exam General Appearance: no apparent distress, alert, comfortable Head: NO TENDERNESS NOTED TO TEMPORAL REGION Comments: Well-developed well-nourished person in no acute distress HEENT: Normal EENT exam, extraocular motion intact, no nystagmus. Pupils equally round and reactive to light and accommodation. Nose is atraumatic. External auditory canal and Tympanic membranes clear. Pharynx normal. No swelling or edema. Neck: Supple, no lymphadenopathy, normal range of motion without pain or tenderness Back: Nontender, no CVA tenderness. Cardiovascular: Regular rate and rhythms no murmurs rubs or gallops, normal JVP Respiratory: Chest nontender. No respiratory distress.breath sounds clear to auscultation bilaterally Abdomen: Soft, nontender nondistended, no appreciable organomegaly. Normal bowel sounds. No ascites Extremity: No edema, no calf tenderness to palpation, normal and equal pulses. Neuro: Alert oriented x3, motor sensory normal, cranial nerves II through XII grossly intact. Skin: No appreciable rash on exposed skin, skin is warm and dry. Psych: Mood and affect is normal, memory and judgment is normal. NIH STROKE SCALE - 0 Core Measures ACS in differential dx? No CVA/TIA Diagnosis: No Severe Sepsis Present: No Septic Shock Present: No (EZIO HERNANDEZ,AMARA) Progress Differential Diagnosis: arrythmia, alcohol intoxication, anemia, benign positional vertigo, CVA/stroke, dehydration, drug intoxication, encephalitis, electrolyte imbalance, GI bleed, hypoglycemia, hypoxia, intracranial Hem., intracranial mass/tumor, labrynthitis, meningitis, Meniere's disease, migraine GONZALEZ, multiple sclerosis, pneumonia, postural hypotension, presyncope, post- traumatic vertigo, sepsis, seizure disorder, subarachnoid Hem., UTI/pyelo, vertebrobasilar insuff, tEMPORAL ARTERITIS Plan of Care: Orders Procedure Date/time Status Add-on Test (ER Only) 04/27 1819 Active EKG 04/27 1635 Active WESTERGREN SED RATE 04/27 1605 Complete Telemetry/Geek Squad Agent 04/27 1540 Active PROLACTIN 04/27 1540 Complete MAGNESIUM 04/27 1540 Complete COMPREHENSIVE METABOLIC PANEL 04/27 1540 Complete CBC WITHOUT DIFFERENTIAL 04/27 1540 Complete Laboratory Tests 04/27/16 1819: ESR Westergren Cancelled 04/27/16 1605: Anion Gap 13, Estimated GFR 20 L, BUN/Creatinine Ratio 15.2, Glucose 91, Calcium 8.5, Magnesium 1.6, Total Bilirubin 0.8, AST 16, ALT 22, Alkaline Phosphatase 112, Total Protein 6.5, Albumin 3.4 L, Globulin 3.1, Albumin/ Globulin Ratio 1.1, Prolactin 7.6, CBC w Diff NO MAN DIFF REQ, RBC 3.87 L, MCV 81.2, MCH 26.1 L, RDW 18.1 H, MPV 8.7, Gran % 89.4 H, Lymphocytes % 3.7 L, Monocytes % 6.3, Eosinophils % 0.5, Basophils % 0.1, Absolute Granulocytes 7.5 H, Absolute Lymphocytes 0.3 L, Absolute Monocytes 0.5, Absolute Eosinophils 0, Absolute Basophils 0, PUBS MCHC 32.1 L, ESR Westergren 78 H Initial examination patient's exam was unremarkable no signs of neurological deficit. It was noted by nursing staff that they witnessed a facial twitching and leg twitching episode that lasted for approximately 30 seconds however no loss of consciousness occurred and no tonic-clonic global seizure-like activity had occurred patient was not postictal and states that she was aware of the entire episode. I had a extensive conversation with patient's neurologist who works WITH DR. PAKRS- the physician veterinarian assistant Rina over the phone and which she discussed with me that on Tuesday she evaluated the patient and which she received a MRI on Tuesday and an EEG on Tuesday in which she reported to me over the phone that there was unremarkable acute findings FOR CONCERNS OF epileptic seizures AND NO episodes OCCURRED during the EEG. No acute findings of the MRI. Patient was advised to increase Keppra and has concerns of any facial spasming versus focal seizure like activity I discussed exam findings and blood work with this provider which she advised patient to begin LACOSAMIDE to receive a 200 mg loading dose and begin 100 mg twice a day and to follow-up with the establishment of the appointment on April 30. Patient did have a elevated sedimentation rate for concerns of giant cell arteritis however patient denies any headache however patient was discussed with 2 follow-up tomorrow with neurologist and primary care doctor to receive biopsy to rule out giant cell arteritis. Patient was given LOADING dose of prednisone and prescription of prednisone. Upon discharge patient looks well no apparent distress and will comply discharge instructions. Discussed disposition plan with Dr. Camarena who agrees (AMARA OLEARY) Initial ED EKG: normal p-waves, normal QRS complex, normal sinus rhythm (AMARA OLEARY) Departure Departure Disposition: HOME OR SELF CARE Condition: Stable Clinical Impression Primary Impression: Facial twitching Secondary Impressions: Giant cell arteritis, Muscle spasm Referrals: AMIRAH ELAINE,FRANCISCO Stover (PCP/Family) Additional Instructions: As discussed continue home medications as directed. Begin the prescription of lacosamide as directed tomorrow as you receive this medication the emergency room today. Follow-up with your established neurology appointment on Tuesday for further evaluation treatment. If symptoms worsen return to emergency room Please follow-up with your primary care doctor tomorrow and your neurologist tomorrow to set up an up a referral to receive a temporal artery biopsy for evaluation of temporal arteritis. Begin the prescription of prednisone as directed for the full course. Departure Forms: Customer Survey General Discharge Information Prescriptions: Current Visit Scripts Lacosamide (Vimpat) 1 TAB PO DAILY PRN SEIZURE #14 TAB Prednisone 3 TAB PO BID #168 TAB Lacosamide (Vimpat) 1 TAB PO BID #14 TAB (AMARA OLEARY) PA/MINING HELPER Co-Sign Statement Statement: ED Attending supervision documentation- [] I saw and evaluated the patient. I have also reviewed all the pertinent lab results and diagnostic results. I agree with the findings and the plan of care as documented in the PA's/MINING HELPER's documentation. [X] I have reviewed the ED Record and agree with the PA's/MINING HELPER's documentation. [] Additions or exceptions (if any) to the PAs/MINING HELPER's note and plan are summarized below: [] (MAURICIO ELAINE,ANABEL Romero)
[2016-04-27 16:24] LABS: ABSOLUTE BASOPHIL COUNT 0 /CUMM (0.0-0.2); ABSOLUTE EOSINOPHIL COUNT 0 /CUMM (0.0-0.7); ABSOLUTE GRANULOCYTE CT 7.5 /CUMM (1.4-6.5); ABSOLUTE LYMPH COUNT 0.3 /CUMM (1.2-3.4); ABSOLUTE MONOCYTE COUNT 0.5 /CUMM (0.10-0.60); BASOPHIL % 0.1 % (0.0-2.0); EOSINOPHIL % 0.5 % (0-5); HEMATOCRIT 31.4 % (37-47); MEAN CORPUSCULAR HGB 26.1 PG (27.0-31.0); MEAN CORPUSCULAR HGB CONC 32.1 G/DL (33.0-37.0); MEAN CORPUSCULAR VOLUME 81.2 FL (81.0-99.0); MEAN PLATELET VOLUME 8.7 FL (7.4-10.4); PLATELET COUNT 307 /CUMM (130-400); RBC DISTRIBUTION WIDTH 18.1 % (11.5-14.5); RED BLOOD CELL CT 3.87 /CUMM (4.20-5.40); WHITE BLOOD CELL COUNT 8.3 /CUMM (4.8-10.8)
[2016-04-27 16:38] LABS: GRANULOCYTE % 89.4 % (42.2-75.2)
[2016-04-27 18:45] VITALS: BP 176/72
[2016-04-27] MEDS ORDERED: VIMPAT100 M1 PO ×2 (19:23→21:59)
[2016-04-27] MEDS ORDERED: PREDNISONE10 M2 PO (20:02)
== END 2016-04-27 21:41 ==
LOC: ERH 14:47
PROVIDERS: Physician Assistant
DX: R25.3 Fasciculation (principal); M31.6 Other giant cell arteritis; M62.838 Other muscle spasm
CPT/HCPCS: 93005; 93010

== ENCOUNTER 2016-05-08 16:54 | Emergency (ER) | payer OTHER ==
[~2016-05-08 16:54] MED LIST changes: +PREDNISONE10 M2 PO; +VIMPAT100 M1 PO
--- NOTE | 2016-05-08 17:30 | ED AMS/SEIZURE/WEAK/DIZZY ---
History of Present Illness General Chief Complaint: Seizure Stated Complaint: BIBA SEIZURE Source: family Exam Limitations: clinical condition Vital Signs & Intake/Output Vital Signs & Intake/Output Vital Signs Date Time Temp Pulse Resp B/P Pulse O2 O2 Flow FiO2 Ox Delivery Rate 05/08 1842 97.3 64 20 197/88 96 Room Air 05/08 1739 72 20 197/81 100 Non ReBreather 05/08 1707 97.5 71 18 196/80 95 Room Air Triage Note: BIBA FROM HOME WITH C/O INCREASED FREQUENCY OF SEIZURES. EMS REPORTS PT HAS BEEN SEEN HERE MULTIPLE TIMES FOR SAME, SISTER REPORTS PT GENERALLY HAS FOCAL SEIZURES, MECH FALL 3 WEEKS AGO AND HURT HER ARM AND "HAS BEEN SICK EVER SINCE." FAMILY IS UNABLE TO PROVIDE A CLEAR HISTORY OR A CLEAR EXPLANATION OF BASELINE MENTAL STATUS, THEY DO REPORT SHE HAS SEEMED TO DECLINE IN LAST 3 WKS, PER SISTER NORMALLY HAS FOCAL SEIZURES BUT TODAY ?GENERALIZED. ARRIVES HYPERTENSIVE WITH HX OF SAME, ON MEDICATION, PT UNABLE TO STATE WHETHER IT WAS TAKEN AND FAMILY DOES NOT KNOW. Triage Nurses Notes Reviewed? yes HPI: Bhakti is a 55-year-old female who was brought in by ambulance from home for a witnessed seizure that lasted less than 5 minutes. Bhakti has a complicated past medical history including lupus, fibromyalgia, restless leg syndrome, CVA, renal artery stenosis and malignant hypertension. For the past few weeks she has been having seizures which have been increasing in intensity and duration. She was evaluated in the emergency department recently, Apr 07 for facial twitching and the possibility of temporal arteritis. She was started on Vimpat as directed by the PA in her neurologist office in addition to the Keppra that she artery takes. She was also started on a steroid taper. Bhakti is unable to give a history and had a two-minute tonic-clonic seizure while she was in the emergency department. Bhakti sister reports that she spoke to Vikram Duarte MD her access analyst over the telephone this past week because her neurologist encouraged her to. We are unaware of the information that was given. (STUART BLANTON APRN) Allergies Coded Allergies: Penicillins (Intermediate, RASH 06/05/15) erythromycin base (Intermediate, ANAPHYLAXIS 06/05/15) vancomycin (Intermediate, WHEEZING 06/05/15) Gadolinium-Containing Contrast Medi (PT ONLY HAS ONE KIDNEY - LEFT KIDNEY ) Iodinated Contrast Media - Oral and (PT HAS ONLY ONE KIDNEY - LEFT KIDNEY PER PT MED LIST 05/08/16) cefazolin (PER PT MED LIST 05/08/16) clindamycin (PER PT MED LIST 05/08/16) neomycin (PER PT MED LIST 05/08/16) Reconcile Medications Albuterol Sulfate (Proair Hfa) 0.09 MG/Actuation GA 1-2 INH INH Q4-6 PRN PRN SOB (Reported) Amlodipine Besylate (Norvasc) 10 MG TABLET 1 TAB PO DAILY HTN (Reported) Atorvastatin Calcium (Lipitor) 40 MG TABLET 1 TAB PO DAILY STROKE (Reported) Carvedilol (Coreg) (Unknown Strength) TABLET (Unknown Dose) PO AD UNKNOWN ( Reported) Cholecalciferol (Vitamin D3) (Vitamin D) 10,000 UNIT CAPSULE 1 TAB PO Q 2 WEEKS HEALTH SUPPLEMENT (Reported) Hydroxychloroquine Sulfate 200 MG TABLET 1 TAB PO DAILY LUPUS (Reported) Lacosamide (Vimpat) 100 MG TABLET 1 TAB PO DAILY PRN SEIZURE Lacosamide (Vimpat) 100 MG TABLET 1 TAB PO BID SEIZURE Levetiracetam (Keppra) 500 MG TABLET 1 TAB PO BID SEIZURES (Reported) Levothyroxine Sodium (Synthroid) 88 MCG TABLET 1 TAB PO DAILY THYROID ( Reported) Losartan (Cozaar) 50 MG TAB 1 TAB PO DAILY HYPERTENSION (Reported) Multivitamin (Multivitamins) 1 EACH CAPSULE 1 TAB PO D HEALTH SUPPLEMENT ( Reported) Prednisone 10 MG TABLET 3 TAB PO BID TEMPORAL ARTERITIS Rotigotine (Neupro) 3 MG/24 HOUR PATCH.TD24 1 PATCH EXT D RESTLESS LEGS ( Reported) Zolpidem Tartrate 10 MG TAB 1 TAB PO AT BEDTIME INSOMNIA (Reported) (JOSE LYNN MD) Past History Travel History Traveled to [place] past 21 day No Medical History Any Pertinent Medical History? 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 FH: myocardial infarction BROTHER CABG UNCLE FH: lung cancer MOTHER (DIABETES, BRAIN TUMOR). Relation not specified for: FHx: diabetes mellitus Hx Contributory? No (STUART BLANTON APRN) Review of Systems Review of Systems Constitutional: Reports: see HPI. EENTM: Denies: no symptoms. Respiratory: Denies: no symptoms. Cardiovascular: Denies: no symptoms. GI: Reports: nausea, vomiting. Genitourinary: Denies: no symptoms. Musculoskeletal: Denies: no symptoms. Skin: Denies: no symptoms. Neurological/Psychological: Reports: see HPI, headache, petit mal seizures, tonic-clonic seizures. Hematologic/Endocrine: Denies: no symptoms. Immunologic/Allergic: Denies: no symptoms. (STUART BLANTON APRN) Physical Exam Physical Exam General Appearance: severe distress Head: atraumatic, normal appearance Neck: normal inspection, supple, full range of motion Respiratory: normal breath sounds, chest non-tender, no respiratory distress Cardiovascular: regular rate/rhythm Peripheral Pulses: 2+ radial (R), 2+ radial (L), 2+ dorsalis pedis (R), 2+ dorsalis pedis (L) Gastrointestinal: normal bowel sounds, soft, non-tender Back: normal inspection, normal range of motion Extremities: normal range of motion, pelvis stable Neurologic/Psych: post ictal status post seizure Skin: intact, normal color, warm/dry Core Measures ACS in differential dx? No CVA/TIA Diagnosis: No Severe Sepsis Present: No Septic Shock Present: No (STUART BLANTON APRN) Progress Differential Diagnosis: electrolyte imbalance, sepsis, seizure disorder Plan of Care: Orders Procedure Date/time Status Patient Data 05/08 191 Active Ordaz, Insertion/Removal/Asses 05/08 1811 Active CULTURE,URINE 05/08 1811 Active URINALYSIS 05/08 1811 Active Telemetry/Chicken Fancier 05/08 172 Active EKG 05/08 1723 Active TROPONIN LEVEL 05/08 172 Complete COMPREHENSIVE METABOLIC PANEL 05/08 172 Complete CBC WITHOUT DIFFERENTIAL 05/08 1720 Complete Laboratory Tests 05/08/16 1733: Anion Gap 22 H, Estimated GFR 6 L, BUN/Creatinine Ratio 10.1, Glucose 176 H, Calcium 8.0 L, Total Bilirubin 0.8, AST 17, ALT 19, Alkaline Phosphatase 126, Troponin I 0.06, Total Protein 6.8, Albumin 3.7, Globulin 3.1, Albumin/Globulin Ratio 1.2, CBC w Diff NO MAN DIFF REQ, RBC 4.30, MCV 80.9 L, MCH 26.0 L, RDW 18.9 H, MPV 8.8, Gran % 92.7 H, Lymphocytes % 4.0 L, Monocytes % 2.7, Eosinophils % 0.5, Basophils % 0.1, Absolute Granulocytes 12.8 H, Absolute Lymphocytes 0.5 L, Absolute Monocytes 0.4, Absolute Eosinophils 0.1, Absolute Basophils 0, PUBS MCHC 32.2 L Microbiology 05/08 1811 URINE ROUT: Urine Culture - ORD Diagnostic Imaging: Viewed by Me: Radiology Read. Discussed w/RAD: Radiology Read. Initial ED EKG: normal sinus rhythm with a right bundle branch block no change from previous Prior EKG: unchanged Comments: 6:35 PM Bhakti had a 2 minute tonic clonic seizure upon my evaluation after Bhakti arrived by ambulance. She was given Keppra 500 mg IV. She was also given Valium 5 mg IV because of teeth clenching that was noted and she was biting her lip. She remains unresponsive at this time but vital signs stable. She does open her eyes to verbal stimulus at times. Creatinine noted to be 7.4 so call made out to nephrology. She will be admitted to the ICU, Ordaz cath to be placed. Dr. Lynn took over care. PATIENT: BHAKTI VELAZQUEZ PRESENT AGE: 55 PATIENT ACCOUNT NO: [id number] : 59 LOCATION: [facility] ORDERING PHYSICIAN: STUART BLANTON APRN SERVICE DATE: 05/08/16-1723 EXAM TYPE: RAD - XRY-PORTABLE CHEST XRAY EXAMINATION: XR PORTABLE CHEST CLINICAL INFORMATION: Nausea and vomiting. Status post seizure. Evaluate for aspiration pneumonitis. COMPARISON: Chest x-ray 06/05/2015. TECHNIQUE: Portable AP view of the chest was obtained. FINDINGS: Single AP view of the chest demonstrates pulmonary hypoinflation. Of note, there is significant enlargement of the cardiac silhouette with mild central venous congestion. No overt pulmonary edema is identified. There is no focal airspace consolidation, pleural effusions or pneumothoraces. Soft tissues appear unremarkable. No acute osseous abnormality. IMPRESSION: Severe cardiomegaly, without overt pulmonary edema. Of note, the cardiac silhouette appears increased in size relative to the prior exam dating back to 06/05/2015. This finding is nonspecific and may be projectional in nature given technique as well as pulmonary hypoinflation. However, interval increase of the cardiac silhouette secondary to underlying pericardial effusion cannot be entirely excluded. No radiographic findings suggestive of aspiration pneumonitis. DICTATED BY: GIOVANNY MCHUGH MD DATE/TIME DICTATED:05/08/161746 TUBULAR PRODUCTS FABRICATOR:SAULO DATE/TIME TRANSCRIBED:05/08/161746 CONFIDENTIAL, DO NOT COPY WITHOUT APPROPRIATE AUTHORIZATION. <Electronically signed in Other Vendor System> SIGNED BY: GIOVANNY MCHUGH MD 05/08/161757 Patient started to seize again Valium 5 mg IV given, second dose. Dr. Lynn on the phone with hospitalist and he spoke to Dr. hayden. (STUART BLANTON APRN) Departure Departure Time of Disposition: 1906 Disposition: STILL A PATIENT Condition: Critical Clinical Impression Primary Impression: Acute renal failure Qualifiers: Acute renal failure type: unspecified Qualified Code: N17.9 - Acute kidney failure, unspecified Secondary Impressions: Hyperkalemia, Seizure Referrals: FRANCISCO MACARIO MD (PCP/Family) Departure Forms: Customer Survey General Discharge Information Admission Note Spoke With: LAURA KNAPP MD Documentation of Exam: Documentation of any treatments & extenuating circumstances including Concerns Regarding Discharge (functional status, medication knowledge or non-compliance, living conditions, etc.) that warrant an admission rather than observation: Will need admission to the ICU, nephrology consul- will need emergent dialysis, electrolyte correction, neurology consult seizure precautions. (STUART BLANTON APRN) PA/LIGHTNING ROD INSTALLER Co-Sign Statement Statement: ED Attending supervision documentation- x I saw and evaluated the patient. I have also reviewed all the pertinent lab results and diagnostic results. I agree with the findings and the plan of care as documented in the PA's/LIGHTNING ROD INSTALLER's documentation. Multiple seizures, new acute on chronic renal failure. ICU admission for frequent neuro checks, renal evaluation, IVF, ordaz [] I have reviewed the ED Record and agree with the PA's/LIGHTNING ROD INSTALLER's documentation. [] Additions or exceptions (if any) to the PAs/LIGHTNING ROD INSTALLER's note and plan are summarized below: [] (JOSE LYNN MD) Critical Care Note Critical Care Note Critical Care Time: 75-104 min (STUART BLANTON APRN) [] Additions or exceptions (if any) to the PAs/LIGHTNING ROD INSTALLER's note and plan are summarized below: [] (JOSE LYNN MD) Critical Care Note Critical Care Note Critical Care Time: 75-104 min (STUART BLANTON APRN)
[2016-05-08 17:40] LABS: ABSOLUTE BASOPHIL COUNT 0 /CUMM (0.0-0.2); ABSOLUTE EOSINOPHIL COUNT 0.1 /CUMM (0.0-0.7); ABSOLUTE GRANULOCYTE CT 12.8 /CUMM (1.4-6.5); ABSOLUTE LYMPH COUNT 0.5 /CUMM (1.2-3.4); ABSOLUTE MONOCYTE COUNT 0.4 /CUMM (0.10-0.60); BASOPHIL % 0.1 % (0.0-2.0); EOSINOPHIL % 0.5 % (0-5); HEMATOCRIT 34.8 % (37-47); MEAN CORPUSCULAR HGB CONC 32.2 G/DL (33.0-37.0); MEAN CORPUSCULAR VOLUME 80.9 FL (81.0-99.0); MEAN PLATELET VOLUME 8.8 FL (7.4-10.4); PLATELET COUNT 306 /CUMM (130-400); RBC DISTRIBUTION WIDTH 18.9 % (11.5-14.5); WHITE BLOOD CELL COUNT 13.8 /CUMM (4.8-10.8)
[2016-05-08 17:57] LABS: GRANULOCYTE % 92.7 % (42.2-75.2)
--- NOTE | 2016-05-08 17:58 | RADIOLOGY REPORT ---
EXAMINATION: XR PORTABLE CHEST CLINICAL INFORMATION: Nausea and vomiting. Status post seizure. Evaluate for aspiration pneumonitis. COMPARISON: Chest x-ray 06/05/2015. TECHNIQUE: Portable AP view of the chest was obtained. FINDINGS: Single AP view of the chest demonstrates pulmonary hypoinflation. Of note, there is significant enlargement of the cardiac silhouette with mild central venous congestion. No overt pulmonary edema is identified. There is no focal airspace consolidation, pleural effusions or pneumothoraces. Soft tissues appear unremarkable. No acute osseous abnormality. IMPRESSION: Severe cardiomegaly, without overt pulmonary edema. Of note, the cardiac silhouette appears increased in size relative to the prior exam dating back to 06/05/2015. This finding is nonspecific and may be projectional in nature given technique as well as pulmonary hypoinflation. However, interval increase of the cardiac silhouette secondary to underlying pericardial effusion cannot be entirely excluded. No radiographic findings suggestive of aspiration pneumonitis.
[2016-05-08] MEDS ORDERED: HYDROXYCHLOROQ200 M2 PO (19:13)
[2016-05-08] MEDS ORDERED: LEXAPRO20 M1 PO (19:21)
[2016-05-08] MEDS ORDERED: CARBIDOPA-LEVO1 EAC7 PO (19:24)
[2016-05-08] MEDS ORDERED: AVELOX400 M1 PO (19:24)
[2016-05-08] MEDS ORDERED: VITAMIN D250000 UNIT PO (19:26)
[2016-05-08] MEDS ORDERED: VIMPAT100 M1 PO (19:28)
[2016-05-08] MEDS ORDERED: VIMPAT200 M1 PO (19:28)
[2016-05-08] MEDS ORDERED: IRON240 MG PO (19:32)
[2016-05-08] MEDS ORDERED: VITAMIN D1000 UNIT PO (19:33)
[2016-05-08] MEDS ORDERED: VITAMIN C500 M6 PO (19:34)
[2016-05-08] MEDS ORDERED: CALCIUM600 M2 PO (19:34)
[2016-05-08] MEDS ORDERED: PROBIOTIC1 EACH PO (19:35)
[2016-05-08] MEDS ORDERED: CO Q-10100 MG PO (19:35)
[2016-05-08] MEDS ORDERED: LIPO-FLAVONOID1 EACH PO (19:36)
[2016-05-08] MEDS ORDERED: CYANOCOBAL1000 MCG/2 IM (19:36)
--- NOTE | 2016-05-08 19:54 | History & Physical ---
General Information and HPI Allergies/Medications Allergies: Coded Allergies: Penicillins (Intermediate, RASH 06/05/15) erythromycin base (Intermediate, ANAPHYLAXIS 06/05/15) vancomycin (Intermediate, WHEEZING 06/05/15) Gadolinium-Containing Contrast Medi (PT ONLY HAS ONE KIDNEY - LEFT KIDNEY ) Iodinated Contrast Media - Oral and (PT HAS ONLY ONE KIDNEY - LEFT KIDNEY PER PT MED LIST 05/08/16) cefazolin (PER PT MED LIST 05/08/16) clindamycin (PER PT MED LIST 05/08/16) neomycin (PER PT MED LIST 05/08/16) Home Med list Albuterol Sulfate (Proair Hfa) 90 MCG HFA.AER.AD 1-2 PUFF INH PRN ASTHMA ( Reported) Amlodipine Besylate (Norvasc) 10 MG TABLET 1 TAB PO DAILY HTN (Reported) Ascorbate Calcium (Vitamin C) 500 MG TABLET 1 TAB PO AD SUPPLEMENT (Reported) Atorvastatin Calcium (Lipitor) 40 MG TABLET 1 TAB PO DAILY STROKE (Reported) Bioflav,Lemon/Vit Bcomp,C (Lipo-Flavonoid Plus Caplet) (Unknown Strength) TABLET (Unknown Dose) PO AD MENIERES DISEASE (Reported) Calcium Carbonate (Calcium) 600 MG (1,500 MG) TABLET 1 TAB PO AD SUPPLEMENT ( Reported) Carbidopa/Levodopa (Carbidopa-Levodopa 25-100 Tab) 25 MG-100 MG TABLET 1 TAB PO DAILY RESTLESS LEGS (Reported) Carvedilol (Coreg) 25 MG TABLET 1 TAB PO BID BP (Reported) Cholecalciferol (Vitamin D3) (Vitamin D) (Unknown Strength) TABLET (Unknown Dose) PO AD SUPPLEMENT (Reported) Cyanocobalamin (Vitamin B-12) (Cyanocobalamin Injection) 1,000 MCG/ML VIAL 1 ML IM AD PRN SUPPLEMENT (Reported) Ergocalciferol (Vitamin D2) (Vitamin D2) 50,000 UNIT CAPSULE 1 CAP PO Q2W SUPPLEMENT (Reported) Escitalopram Oxalate (Lexapro) 20 MG TABLET 1 TAB PO DAILY DEPRESSION ( Reported) Ferrous Gluconate (IRON) 240 MG (27 MG IRON) TABLET 1 TAB PO AD SUPPLEMENT ( Reported) Hydroxychloroquine Sulfate 200 MG TABLET 1 TAB PO DAILY LUPUS (Reported) Lacosamide (Vimpat) 200 MG TABLET 1 TAB PO QPM SEIZURES (Reported) Lacosamide (Vimpat) 100 MG TABLET 1 TAB PO QAM SEIZURES (Reported) Lactobacillus Acidophilus (Probiotic) (Unknown Strength) CAPSULE (Unknown Dose ) PO AD PROBIOTIC (Reported) Levetiracetam (Keppra) 500 MG TABLET 1 TAB PO BID SEIZURES (Reported) Levothyroxine Sodium (Synthroid) 88 MCG TABLET 1 TAB PO DAILY THYROID ( Reported) Losartan Potassium (Cozaar) (Unknown Strength) TABLET (Unknown Dose) PO UNKNOWN (Reported) Moxifloxacin HCl (Avelox) 400 MG TABLET 1 TAB PO AD PRIOR TO DENTAL PROCEDURES (Reported) Multivitamin (Multivitamins) 1 EACH CAPSULE 1 TAB PO D HEALTH SUPPLEMENT ( Reported) Rotigotine (Neupro) (Unknown Strength) PATCH.TD24 (Unknown Dose) EXT AD RESTLESS LEGS (Reported) Ubidecarenone (Co Q-10) 100 MG CAPSULE 1 CAP PO AD SUPPLEMENT (Reported) Zolpidem Tartrate (Ambien) (Unknown Strength) TABLET (Unknown Dose) PO PRN SLEEP (Reported) Past History Travel History Traveled to [place] past 21 day No Medical History Neurological: restless leg syndrome, SEIZURES AMYLOID ANGIOPATHY EENT: NONE Cardiovascular: hypertension, Renal artery stenosis; s/p stent; one functioning kidney Respiratory: NONE Gastrointestinal: NONE Hepatic: NONE Renal: 1 KIDNEY Musculoskeletal: LEFT KNEE REPLACMENT X 2 Psychiatric: NONE Endocrine: LUPUS Blood Disorders: LUPUS Cancer(s): NONE 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 FH: myocardial infarction BROTHER CABG UNCLE FH: lung cancer MOTHER (DIABETES, BRAIN TUMOR). Relation not specified for: FHx: diabetes mellitus Psychosocial History Services at Home: Nursing, Occupational Therapy, Physical Therapy, Speech Therapy ETOH Use: 6 Core Measures/Miscellaneous Cerebrovascular Accident CVA/TIA Diagnosis: No Severe Sepsis Severe Sepsis Present: No Septic Shock Septic Shock Present: No
--- NOTE | 2016-05-08 20:45 | CT SCAN REPORT ---
EXAMINATION: CT HEAD WITHOUT CONTRAST CLINICAL INFORMATION: Seizure. History of an intraparenchymal hemorrhage, amyloidosis. COMPARISON: Multiple priors, most recent CT head dated 04/24/2016. TECHNIQUE: Contiguous axial imaging was performed from the skull base to vertex without intravenous administration of contrast. DLP: 1344.51 mGy-cm FINDINGS: No acute intracranial hemorrhage. Hypoattenuation/encephalomalacia is redemonstrated within the posterior left frontal lobe, consistent with an old infarct and unchanged since the prior examination. No abnormal mass effect or midline shift is seen. Domínguez to white matter differentiation is otherwise preserved. No extra-axial fluid collections are identified. The ventricles are normal in size. The osseous structures and soft tissues are normal. The mastoid air cells and visualized portions of the paranasal sinuses are well aerated. IMPRESSION: 1. No intracranial hemorrhage or mass effect. 2. Unchanged old left posterior frontal lobe infarct. No significant interval change since the prior examination.
--- NOTE | 2016-05-08 21:44 | History & Physical ---
NITHIN LEAINE,[facility] [place]08[place]16 2139: General Information and HPI MD Statement: I have seen and personally examined BHARATI VELAZQUEZ and documented this H&P. The patient is a 55 year old F who presented with a patient stated chief complaint of seizures. Source of Information: family, old records Exam Limitations: unable to give history, clinical condition History of Present Illness: 55 y/o F with PMHx of SLE c/b nephritis s/p renal artery stent, CVA, HTN, HLD, hypothyroidism and carotid artery stenosis s/p R CEA who presents to the ED with seizures of several weeks duration. Patient is unable to provide any history due to her clinical condition so it is obtained from her sister who is at bedside. On , patient presented to [facility] ED after a fall resulting in bruising to the left side of her face as well as injuries of her left lower extremity and shoulder. She was sent to rehab facility where she stayed for five days during which time she developed seizures. Initially they involved twitching of her right face and rolling of her eyes and resolved after about 30 seconds. Patient was seen by the physician admin assistant at neurologist Dr. Peacock's office and started on Vimpat and Keppra. However, seizures have increased in frequency and duration and have become more pronounced despite starting medications. Patient has been endorsing severe headaches and weakness and has been experiencing confusion, speech and word-finding difficulties since the onset of seizures. Patient presented to Dr. Peacock's office with these complaints the day prior to current presentation when decision was made to stop Keppra. Since then patient has had multiple seizures increasing in intensity and duration, the last one associated with bowel incontinence which prompted her sister to bring her to the ED. En route to the ED, patient had a generalized tonic clonic seizure followed by 3 witnessed seizures in the ED, involving tonic clonic movements of her right arm and tongue-biting. The last seizure was the longest and lasted about 3 minutes. Of note, patient had a stroke in March 2015 at [facility] where she was admitted for knee surgery. She had residual right sided facial droop and slurred speech after the stroke which resolved after a complete of months. Per her sister, patient had intracranial hemorrhage following head trauma during a syncopal episode two years ago but did not have any neurological symptoms at the time. 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 Allergies/Medications Allergies: Coded Allergies: Penicillins (Intermediate, RASH 06/05/15) erythromycin base (Intermediate, ANAPHYLAXIS 06/05/15) vancomycin (Intermediate, WHEEZING 06/05/15) Gadolinium-Containing Contrast Medi (PT ONLY HAS ONE KIDNEY - LEFT KIDNEY ) Iodinated Contrast Media - Oral and (PT HAS ONLY ONE KIDNEY - LEFT KIDNEY PER PT MED LIST 05/08/16) cefazolin (PER PT MED LIST 05/08/16) clindamycin (PER PT MED LIST 05/08/16) neomycin (PER PT MED LIST 05/08/16) Home Med list Albuterol Sulfate (Proair Hfa) 90 MCG HFA.AER.AD 1-2 PUFF INH PRN ASTHMA ( Reported) Amlodipine Besylate (Norvasc) 10 MG TABLET 1 TAB PO DAILY HTN (Reported) Ascorbate Calcium (Vitamin C) 500 MG TABLET 1 TAB PO AD SUPPLEMENT (Reported) Atorvastatin Calcium (Lipitor) 40 MG TABLET 1 TAB PO DAILY STROKE (Reported) Bioflav,Lemon/Vit Bcomp,C (Lipo-Flavonoid Plus Caplet) (Unknown Strength) TABLET (Unknown Dose) PO AD MENIERES DISEASE (Reported) Calcium Carbonate (Calcium) 600 MG (1,500 MG) TABLET 1 TAB PO AD SUPPLEMENT ( Reported) Carbidopa/Levodopa (Carbidopa-Levodopa 25-100 Tab) 25 MG-100 MG TABLET 1 TAB PO DAILY RESTLESS LEGS (Reported) Carvedilol (Coreg) 25 MG TABLET 1 TAB PO BID BP (Reported) Cholecalciferol (Vitamin D3) (Vitamin D) (Unknown Strength) TABLET (Unknown Dose) PO AD SUPPLEMENT (Reported) Cyanocobalamin (Vitamin B-12) (Cyanocobalamin Injection) 1,000 MCG/ML VIAL 1 ML IM AD PRN SUPPLEMENT (Reported) Ergocalciferol (Vitamin D2) (Vitamin D2) 50,000 UNIT CAPSULE 1 CAP PO Q2W SUPPLEMENT (Reported) Escitalopram Oxalate (Lexapro) 20 MG TABLET 1 TAB PO DAILY DEPRESSION ( Reported) Ferrous Gluconate (IRON) 240 MG (27 MG IRON) TABLET 1 TAB PO AD SUPPLEMENT ( Reported) Hydroxychloroquine Sulfate 200 MG TABLET 1 TAB PO DAILY LUPUS (Reported) Lacosamide (Vimpat) 200 MG TABLET 1 TAB PO QPM SEIZURES (Reported) Lacosamide (Vimpat) 100 MG TABLET 1 TAB PO QAM SEIZURES (Reported) Lactobacillus Acidophilus (Probiotic) (Unknown Strength) CAPSULE (Unknown Dose ) PO AD PROBIOTIC (Reported) Levetiracetam (Keppra) 500 MG TABLET 1 TAB PO BID SEIZURES (Reported) Levothyroxine Sodium (Synthroid) 88 MCG TABLET 1 TAB PO DAILY THYROID ( Reported) Losartan Potassium (Cozaar) (Unknown Strength) TABLET (Unknown Dose) PO UNKNOWN (Reported) Moxifloxacin HCl (Avelox) 400 MG TABLET 1 TAB PO AD PRIOR TO DENTAL PROCEDURES (Reported) Multivitamin (Multivitamins) 1 EACH CAPSULE 1 TAB PO D HEALTH SUPPLEMENT ( Reported) Rotigotine (Neupro) (Unknown Strength) PATCH.TD24 (Unknown Dose) EXT AD RESTLESS LEGS (Reported) Ubidecarenone (Co Q-10) 100 MG CAPSULE 1 CAP PO AD SUPPLEMENT (Reported) Zolpidem Tartrate (Ambien) (Unknown Strength) TABLET (Unknown Dose) PO PRN SLEEP (Reported) Past History Travel History Traveled to [place] past 21 day No Medical History Neurological: CVA, restless leg syndrome, seizure, amyloid angiopathy EENT: NONE Cardiovascular: hypertension, carotid artery stenosis Respiratory: NONE Gastrointestinal: NONE Hepatic: NONE Renal: chronic kidney disease, lupus nephritis, renal artery stenosis s/p stent placement, only one functioning kidney Psychiatric: NONE Cancer(s): NONE CLINICAL SAFETY MANAGER/Reproductive: NONE Other Medical Hx: SLE History of MRSA: No History of VRE: No History of CDIFF: No Surgical History Surgical History: cholecystectomy, knee replacement, left hip ORIF, renal artery stent placement, carotid endarterectomy Past Family/Social History Family History Relations & Conditions if any FATHER, , Age 60+. FH: myocardial infarction BROTHER CABG UNCLE FH: lung cancer MOTHER (DIABETES, BRAIN TUMOR). Relation not specified for: FHx: diabetes mellitus Psychosocial History Where do you live? Home Who Do You Live With? self Services at Home: Nursing, Occupational Therapy, Physical Therapy, Speech Therapy Smoking Status: Never Smoked ETOH Use: denies use Illicit Drug Use: denies illicit drug use Functional Ability ADLs Needs Assist: bathing. IADLs Needs Assist: housework. 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 Denies: chills, fever. EENTM: Reports: no symptoms. Denies: visual changes. Cardiovascular: Denies: chest pain. Respiratory: Denies: short of breath. GI: Reports: bowel incontinence. Denies: abdominal pain, constipation, diarrhea, nausea, vomiting. Genitourinary: Reports: no symptoms. Musculoskeletal: Reports: no symptoms. Skin: Reports: no symptoms. Neurological/Psychological: Reports: see HPI, confusion, headache. Hematologic/Endocrine: Reports: no symptoms. Immunologic/Allergic: Reports: no symptoms. All Other Systems: Reviewed and Negative Exam & Diagnostic Data Last 24 Hrs of Vital Signs/I&O Vital Signs Date Time Temp Pulse Resp B/P Pulse O2 O2 Flow FiO2 Ox Delivery Rate 05/08 2117 66 20 174/74 100 Part 60% ReBreather 05/08 2109 72 18 193/80 100 Part 60% ReBreather 05/08 2057 71 20 192/78 100 Non 60% ReBreather 05/08 2043 97.7 69 20 230/91 05/08 2042 97.7 69 20 230/91 93 Part 60% ReBreather 05/08 1933 99 Non 10L ReBreather 05/08 1931 97.7 68 20 185/80 99 Non ReBreather 05/08 1842 97.3 64 20 197/88 96 Room Air 05/08 1739 72 20 197/81 100 Non ReBreather 05/08 1707 97.5 71 18 196/80 95 Room Air Physical Exam General Appearance Open Eyes to Verbal Stimuli, Withdraws From Pain, Does Not Follow Commands Skin No Rashes HEENT Bilateral Pupils Fixed and Dilated Cardiovascular Regular Rate, Normal S1, Normal S2 Lungs Clear to Auscultation Abdomen Soft, No Tenderness, Positive Bowel Sounds Neurological Unable to Test Strength As Patient Does Not Follow Commands Extremities No Clubbing, No Cyanosis, No Edema Last 24 Hrs of Labs/Deangelo: Laboratory Tests 05/08/162039: pH 7.26 *L, pCO2 33 L, pO2 402 H, HCO3 15 L, ABG O2 Sat (Measured) 99.0, P-50 (Temp Corrected) N, Carboxyhemoglobin 0 L, O2 Concentration % 100%, Temperature 97.7, O2 Delivery Method NRB, Phlebotomy Draw Site RIGHT RADIAL 05/08/161732: Anion Gap 22 H, Estimated GFR 6 L, BUN/Creatinine Ratio 10.1, Glucose 176 H, Calcium 8.0 L, Total Bilirubin 0.8, AST 17, ALT 19, Alkaline Phosphatase 126, Troponin I 0.06, Total Protein 6.8, Albumin 3.7, Globulin 3.1, Albumin/Globulin Ratio 1.2, CBC w Diff NO MAN DIFF REQ, RBC 4.30, MCV 80.9 L, MCH 26.0 L, RDW 18.9 H, MPV 8.8, Gran % 92.7 H, Lymphocytes % 4.0 L, Monocytes % 2.7, Eosinophils % 0.5, Basophils % 0.1, Absolute Granulocytes 12.8 H, Absolute Lymphocytes 0.5 L, Absolute Monocytes 0.4, Absolute Eosinophils 0.1, Absolute Basophils 0, PUBS MCHC 32.2 L Microbiology 05/08 1811 URINE ROUT: Urine Culture - ORD Diagnostic Data CXR Results Severe cardiomegaly, without overt pulmonary edema. Of note, the cardiac silhouette appears increased in size relative to the prior exam dating back to 06/05/2015. This finding is nonspecific and may be projectional in nature given technique as well as pulmonary hypoinflation. However, interval increase of the cardiac silhouette secondary to underlying pericardial effusion cannot be entirely excluded. No radiographic findings suggestive of aspiration pneumonitis. Other Results CT HEAD W/O CONTRAST: 1. No intracranial hemorrhage or mass effect. 2. Unchanged old left posterior frontal lobe infarct. No significant interval change since the prior examination. Assessment/Plan Assessment: 55 y/o F with PMHx of SLE c/b nephritis s/p renal artery stent, CVA and HTN who presents with progressively worsening seizures following a fall involving head trauma. #Recurrent seizures and suspected status epilepticus: Seizures have been increasing in frequency, duration and severity. In the ED, patient had 3 episodes and did not return back to baseline mental status between episodes which would be consistent with status epilepticus. * Received 500 mg of IV Keppra, 2 mg of IV Ativan and 5 mg of IV diazepam x 2 in the ED. * Per on-call neurologist Dr. August, patient will be need to be transferred to [facility] for further management including continuous EEG monitoring. #Hypertensive emergency: BP elevated to 230/91. CT Head negative for intracranial hemorrhage. S/p 5 mg of labetalol in the ED with some improvement in BP. * Decrease BP gradually in the setting of KARLIE. #KARLIE on CKD: Cr 7.4 on initial presentation, significantly elevated from 2.5 11 days prior (04/27/16). Unclear etiology. * Will need further work-up and management at [facility]. #Anion gap metabolic acidosis: Bicarbonate 15 and anion gap 22 on initial presentation. Most likely secondary to KARLIE. * Patient was started on bicarbonate drip at 150 mEq/hr. CODE: DNR/DNI As Ranked By This Provider Problem List: 1. Status epilepticus 2. Recurrent seizures 3. Hypertensive emergency 4. Acute kidney injury superimposed on chronic kidney disease 5. High anion gap metabolic acidosis Core Measures/Miscellaneous Acute Coronary Syndrome ACS Diagnosis: No Cerebrovascular Accident CVA/TIA Diagnosis: No Congestive Heart Failure CHF Diagnosis: No Severe Sepsis Severe Sepsis Present: No Septic Shock Septic Shock Present: No Miscellaneous Documentation Attending Case Discussed With: Laura Platt MD Primary Care Physician: FRANCISCO MACARIO MD Patient sees these Specialists [place] Vikram Duarte MD Various Exceptionalities Teacher Jamie Doll MD Neurologist Natalio Peacock MD Orthopedic surgeon Celso Simpson MD Level of Patient Care: Critical Care (CRI) LAURA PLATT 05/08/16 2228: Attending MD Review Statement Attending Statement Attending MD Statement: examined this patient, discuss w/resident/PA/SENIOR TECHNICAL BUSINESS ANALYST, agreed w/resident/PA/SENIOR TECHNICAL BUSINESS ANALYST, discussed with family, reviewed EMR data (avail), reviewed images, amended to note Attending Assessment/Plan: CC : seizures 55 Y O W F with PMHx : HTN, HLD, SLE CKD (cr 2.5) S/P renal A stent, CVA ( hemorrhages stroke), carotid artery stenosis status post right CEA, seizure disorder, was brought in by EMS for multiple seizures. History narrated by sister who is bedside states that when she came back from work she found patient having multiple seizures/twitching followed by one generalized seizure in route. Patient had 3 witnessed seizures in ER. Patient is nonverbal, no details of history available. She has been to ER 3 times since April 14 for different reasons, had a fall 2 weeks back on left side of face and left shoulder evaluated outpatient. From the chart extraction, and history narrated by sister, her seizure medications were being titrated outpatient recently added Vimpat to her regimen along with Keppra. There is unclear history of patient not taking Keppra since yesterday, as she was suggested to stop it and increase the dose of Vimpat. 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 On exam: Open eyes for verbal commands, withdraws for pain, confused, in between the seizure episodes, pupils equal reactive bilaterally. No JVD, no lymphadenopathy. CVS : S1-S2, systolic murmur RS: Clear to auscultate bilaterally. Abdomen: Soft, NT, ND, bowel sounds present, no apparent skin rashes, Mitchell's catheter present. Labs: WBC 13.8 with neutrophils 92%, an and Metabolic acidosis with bicarbonate 15, anion gap 22, creatinine 7.2, increased from 2.5 on April 27, ABG: PH 7.26 , PCO2 33, PO2 400, bicarbonate 15 on 100% NRB CXR: Severe cardiomegaly, without overt pulmonary edema. Of note, the cardiac silhouette appears increased in size relative to the prior exam dating back to 06/05/2015. This finding is nonspecific and may be projectional in nature given technique as well as pulmonary hypoinflation. However, interval increase of the cardiac silhouette secondary to underlying pericardial effusion cannot be entirely excluded. No radiographic findings suggestive of aspiration pneumonitis. CT head without: No intracranial hemorrhage or mass effect Unchanged old left posterior frontal lobe infarct. No significant interval change since the prior examination. Patient received 500 mg Keppra, 4 mg Zofran, 1 L normal saline, 10 mg diazepam, 2 mg Ativan, 5 mg labetalol in ER A and P #1 Recurrent seizures: Suspect status, I called Dr. August, on-call neurologist and discussed in detail about the plan. Patient would benefit from continuous EEG monitoring, because of recurrent seizure and not returning to complete baseline mental condition. I spoke to yield access about transfer and on-call neurologist (Dr Eric), was suggested to transfer to ED. I spoke to Dr. Khan in ER about the transfer #2 KARLIE on CKD : anuric, cr 2.5 tp 7.4 in 11 days. Patient has associated on and Metabolic acidosis, with potassium 5.5, she received 1 L normal saline bolus in ER, started on on bicarbonate drip at 150 mEq per hour for acidosis. #3 hypertensive emergency: CT scan negative for any stroke, CXR negative for any pulmonary congestion, patient received a dose of labetalol 5 mg in ER, goal to decrease BP gradually given her kidney injury. #4 patient being transferred to [facility] ED for further management. Patient is DNR, I confirmed with the sister at bedside. SIGIFREDO [place] 05/08/16 2253: Core Measures/Miscellaneous Acute Coronary Syndrome ACS Diagnosis: No Cerebrovascular Accident CVA/TIA Diagnosis: No Congestive Heart Failure CHF Diagnosis: No Venous Thromboembolism VTE Risk Factors: Acute medical illness, Age > 40, Immobility, paresis VTE Prophylaxis Ordered Inpt: Mechanical (ALPS/TEDS) No Mech VTE prophylaxis d/t: No contraindications No VTE Pharm Prophylaxis d/t: No contraindications VTE Diagnosis: No VTE Type: NONE VTE Confirmed by (Test): NONE Resident Review Statement Resident Statement: examined this patient, discussed with senior internal auditor, agreed with senior internal auditor, discussed with family, reviewed EMR data (avail), discussed with nursing , discussed with case mgmt, reviewed images, amended to note Other Findings: 55-year-old woman w/ multiple comorbidities and significant past medical Hx was BIBA for seizure activity. Due to patients condition, HPI was obtained from her sister, primary career placement services counselor, who oresents at bedside. Patient leaves alone, has difficulty ambulating very inactive, and depends on her sister for care. In addition to her ongoing chronic problems, on , had an episode of fall and was seen in [facility] ED and was send for rehab during which, reportadely, she developed twitching/jerking movements on the right side of her face. Per sister " her right face and rolling of her eyes and resolved after about 30 seconds". Was seen in [facility] ED and was started on prednisone for possible temporal arthritis and vimpat and was referred to see a neurologist. Patient was seen by the PA at neurologist Dr. Peacock's office and started on Vimpat, Keppra and prednisone was stopped. MOving forward, patient has been suffered from worsening (more frequent and more prominent spells of seizure (2-3 / day on average). Patient has been endorsing severe headaches and weakness and has been experiencing confusion, speech and word-finding difficulties since the onset of seizures. Patient presented to Dr. Peacock's office with these complaints the day prior to current presentation to the ED when decision was made to stop Keppra. Since then patient has had multiple seizures involving tonic clonic movements of her right arm and associated with bowel incontinence which prompted her sister to bring her to the ED. In the ED, patient was observed to have 4 seizures, involving tonic clonic movements and tongue-biting. The last seizure was the longest and lasted about 3 minutes. Sister denies any report of aura, CP , fever, chills, sick contact. Of note, patient had a stroke in March 2015 at [facility] where she was admitted for knee surgery. She had residual right sided facial droop and slurred speech after the stroke which resolved after a complete of months. Per her sister, patient had intracranial hemorrhage following head trauma during a syncopal episode two years ago but did not have any neurological s PH/EX: patient is not responding to her name, or painful stimuli. CV: S1 loud S2 no murmur; asymmetric swelling of B/L lower extremities more on the left (base line); Neuro: not responssive; eys: pupils: dilated and fixed; Bothe eyses deviated to the right remaineed there for 1 min to 30 sec and then go to the other side before coming back to the right and have the pause (UP and right gaze ) for bothe eys; and up Reflexes: B/L +2 in 4 extremities [place] Upward B/L. A/P 55 years old woman was admitted for witnessed GTC seizure and a recent Hx of worsening intermittent focal seizure wich was associated with progressive change of mentation. DDx: primary seizure disorder Vs Secondary seizure disorder (ID ( elevated WBC but no fever or sick contact or worsesning headache or neck pain, Medication: patient Keppra was stopped today: withdrawl from anti-epileptic medication could cause GTC, She was found to have uremia and worsening of her CKD: metabolic causes are important causes for this patient, in particular, to be considered, ANY intra-cranial lesion or pathology (structural): such as tumor or bleeding could be the casue. However, patient does not have a Hx of recent trauma and her current head CT was also normal. meningoencephalitis could cause seizure but the natural course of her condition and pre-existing focal seizure (myoclunus-type seizure) does not sound to be ID related but her elevated WBS needs to be monitored off Abx. Plan Patient was repeatadely seizing. IV ativan 2 Mg push transfer to [facility] for continouse EEG and neuro-ICU admission- Was discussed with Dr. August by Dr. Platt Severe acidosis- Low HCo3 and elevated anion gap 2/2 to high Urea: IV HCO3/ [id number] Ml/ H Plan was discussed with POA and other familly members, who were agreable with the transfer. DNR/DNI
[2016-05-08 22:27] VITALS: BP 184/81
--- NOTE | 2016-05-08 22:33 | Discharge Summary ---
Visit Information Visit Dates Admission Date: 05/08/16 Discharge Date: 05/08/16 Hospital Course Course Attending Physician: Laura Platt MD Primary Care Physician: AMIRAH ELAINE,FRANCISCO Stover Consulting Request: Consulting Specialty: Neurology Hospital Course: Patient is a 55 y/o F with PMHx of HTN, HLD, SLE c/b nephritis s/p renal artery stent, CVA, carotid artery stenosis s/p CEA who presents with recurrent seizures of increasing frequency, duration and severity for several weeks following a fall involving head trauma. Patient had been started on Keppra and Vimpat for the seizures but had stopped taking the Keppra the day prior to current presentation per the recommendations of the physician pastry assistant at her neurologist Dr. Peacock's office as she had been experiencing severe migraines and fatigue. En route to the ED, patient had a generalized tonic clonic seizure followed by 3 seizures in the ED, involving twitching of her right face and tonic clonic movements of her right arm, the last one being the longest and lasting about 3 minutes. Between the seizures, patient was somnolent, nonverbal and not following commands. In the ED, vitals were remarkable for markedly elevated blood pressure to a maximum of 230/91. Labs were significant for mild leukocytosis (WBC 13.8), anion gap metabolic acidosis (bicarbonate 15 and anion gap 22) and creatinine of 7.4 (elevated from 2.5 on 04/27/16). CT Head was negative for acute bleed. Below are the issues that were currently addressed: #Suspected status epilepticus and recurrent seizures: Patient received 2 mg of IV Ativan, 5 mg of IV diazepam x 2 and 500 mg of IV Keppra in the ED. Patient is suspected to have status epilepticus in the setting of failure to return to baseline mental status between seizures and needs continuous EEG monitoring in a Neuro-ICU setting. This was discussed extensively with the consulting neurologist and patient was transferred to [place]. #Hypertensive emergency: Patient received 5 mg of IV labetalol in the ED with some improvement in her BP but her BP has to be gradually decreased in the setting of her KARLIE. #KARLIE on CKD: Patient presented with creatinine of 7.4, elevated from 2.5 about 10 days prior. She received 1 L of NS bolus in the ED and was started on bicarbonate drip at 150 mEq per hour given her anion gap metabolic acidosis. This issue will need to be after her transfer. Allergies: Coded Allergies: Penicillins (Intermediate, RASH 06/05/15) erythromycin base (Intermediate, ANAPHYLAXIS 06/05/15) vancomycin (Intermediate, WHEEZING 06/05/15) Gadolinium-Containing Contrast Medi (PT ONLY HAS ONE KIDNEY - LEFT KIDNEY ) Iodinated Contrast Media - Oral and (PT HAS ONLY ONE KIDNEY - LEFT KIDNEY PER PT MED LIST 05/08/16) cefazolin (PER PT MED LIST 05/08/16) clindamycin (PER PT MED LIST 05/08/16) neomycin (PER PT MED LIST 05/08/16) Disposition Summary Disposition Principal Diagnosis: Suspected status epilepticus Additional Diagnosis: Seizures Hypertensive emergency KARLIE on CKD Anion gap metabolic acidosis Discharge Disposition: other general hospital Discharge Instructions General Discharge Information Code Status: Do Not Resucitate/Intubat Patient's Diet: NPO Patient's Activity: N/A Follow-Up Instructions/Appts: N/A Copies To: BARBRA ELAINE,CLARITZA Terry; LAURA PLATT MD; AMIRAH ELAINE,FRANCISCO Stover Attending MD Review Statement Documenting Attending: LAURA PLATT MD Other Findings: KARLIE on CKD, Suspcted Status epilepticus (recurrent Sz in ER), HTN emergency. She is being transffered to [place] for continuous EEG monitoring.
== END 2016-05-08 23:19 | disposition short-term general hospital (02) ==
LOC: ENRESERVDT → CANRESERV → ENRESERVTM → ERH 16:54 → CANBEDREQ 05-09 06:55
PROVIDERS: Nurse Practitioner Family
DX: R56.9 Unspecified convulsions (principal); N17.9 Acute kidney failure, unspecified; E87.5 Hyperkalemia; I10 Essential (primary) hypertension; M79.7 Fibromyalgia; G25.81 Restless legs syndrome; I70.1 Atherosclerosis of renal artery
CPT/HCPCS: 87086; 93005; 93010; 96361; 96374; 96375; 96376; 99291; J1953; J2405; J3360; J7060

== ENCOUNTER 2017-05-10 04:02 | Inpatient (IN) | payer OTHER ==
[~2017-05-10] VITALS: Ht 172.7 cm; Wt 93.0 kg
[~2017-05-10 04:02] MED LIST changes: +AVELOX400 M1 PO; +CARBIDOPA-LEVO1 EAC7 PO; +CYANOCOBAL1000 MCG/2 IM; +HYDROXYCHLOROQ200 M2 PO; +IRON240 MG PO; +LEXAPRO20 M1 PO; +LIPO-FLAVONOID1 EACH PO; +PROBIOTIC1 EACH PO; +VIMPAT200 M1 PO; +VITAMIN D1000 UNIT PO; +VITAMIN D250000 UNIT PO
--- NOTE | 2017-05-10 04:07 | ED DYSPNEA/ASTHMA COMPLAINT ---
History of Present Illness General Chief Complaint: Dyspnea (COPD, CHF, Other) Stated Complaint: BIBA, DIFF BREATHING Source: patient, old records, EMS Exam Limitations: no limitations Vital Signs & Intake/Output Vital Signs & Intake/Output Vital Signs Date Time Temp Pulse Resp B/P B/P Pulse O2 O2 Flow FiO2 Mean Ox Delivery Rate 05/10 528 97.7 60 2 169/73 100 BIPAP 40% 05/100 96.0 61 26 174/85 100 Allergies Coded Allergies: Penicillins (Intermediate, RASH 05/10/17) erythromycin base (Intermediate, ANAPHYLAXIS 05/10/17) vancomycin (Intermediate, WHEEZING 05/10/17) Gadolinium-Containing Contrast Medi (PT ONLY HAS ONE KIDNEY - LEFT KIDNEY ) Iodinated Contrast- Oral and IV Dye (IODINATED CONTRAST MEDIA - ORAL AND) (PT HAS ONLY ONE KIDNEY - LEFT KIDNEY PER PT MED LIST 05/10/17) cefazolin (PER PT MED LIST 05/10/17) clindamycin (PER PT MED LIST 05/10/17) neomycin (PER PT MED LIST 05/10/17) Reconcile Medications Albuterol Sulfate (Proair Hfa) 90 MCG HFA.AER.AD 1-2 PUFF INH PRN ASTHMA ( Reported) Amlodipine Besylate (Norvasc) 10 MG TABLET 1 TAB PO DAILY HTN (Reported) Ascorbate Calcium (Vitamin C) 500 MG TABLET 1 TAB PO AD SUPPLEMENT (Reported) Atorvastatin Calcium (Lipitor) 40 MG TABLET 1 TAB PO DAILY STROKE (Reported) Bioflav,Lemon/Vit Bcomp,C (Lipo-Flavonoid Plus Caplet) (Unknown Strength) TABLET (Unknown Dose) PO AD MENIERES DISEASE (Reported) Calcium Carbonate (Calcium) 600 MG (1,500 MG) TABLET 1 TAB PO AD SUPPLEMENT ( Reported) Carbidopa/Levodopa (Carbidopa-Levodopa 25-100 Tab) 25 MG-100 MG TABLET 1 TAB PO DAILY RESTLESS LEGS (Reported) Carvedilol (Coreg) 25 MG TABLET 1 TAB PO BID BP (Reported) Cholecalciferol (Vitamin D3) (Vitamin D) (Unknown Strength) TABLET (Unknown Dose) PO AD SUPPLEMENT (Reported) Cyanocobalamin (Vitamin B-12) (Cyanocobalamin Injection) 1,000 MCG/ML VIAL 1 ML IM AD PRN SUPPLEMENT (Reported) Ergocalciferol (Vitamin D2) (Vitamin D2) 50,000 UNIT CAPSULE 1 CAP PO Q2W SUPPLEMENT (Reported) Escitalopram Oxalate (Lexapro) 20 MG TABLET 1 TAB PO DAILY DEPRESSION ( Reported) Ferrous Gluconate (IRON) 240 MG (27 MG IRON) TABLET 1 TAB PO AD SUPPLEMENT ( Reported) Hydroxychloroquine Sulfate 200 MG TABLET 1 TAB PO DAILY LUPUS (Reported) Lacosamide (Vimpat) 200 MG TABLET 1 TAB PO QPM SEIZURES (Reported) Lacosamide (Vimpat) 100 MG TABLET 1 TAB PO QAM SEIZURES (Reported) Lactobacillus Acidophilus (Probiotic) (Unknown Strength) CAPSULE (Unknown Dose ) PO AD PROBIOTIC (Reported) Levetiracetam (Keppra) 500 MG TABLET 1 TAB PO BID SEIZURES (Reported) Levothyroxine Sodium (Synthroid) 88 MCG TABLET 1 TAB PO DAILY THYROID ( Reported) Losartan Potassium (Cozaar) (Unknown Strength) TABLET (Unknown Dose) PO UNKNOWN (Reported) Moxifloxacin HCl (Avelox) 400 MG TABLET 1 TAB PO AD PRIOR TO DENTAL PROCEDURES (Reported) Multivitamin (Multivitamins) 1 EACH CAPSULE 1 TAB PO D HEALTH SUPPLEMENT ( Reported) Rotigotine (Neupro) (Unknown Strength) PATCH.TD24 (Unknown Dose) EXT AD RESTLESS LEGS (Reported) Ubidecarenone (Co Q-10) 100 MG CAPSULE 1 CAP PO AD SUPPLEMENT (Reported) Zolpidem Tartrate (Ambien) (Unknown Strength) TABLET (Unknown Dose) PO PRN SLEEP (Reported) Triage Nurses Notes Reviewed? yes Onset: Gradual Duration: day(s): Timing: recent history Severity: moderate Activities at Onset: none Prior Episodes/Possible Cause: occasional episodes Modifying Factors: Improves With: other (better w/bipap). Associated Symptoms: cough, wheezing HPI: 56 yo woman h/o esrd, copd, chf, presents with dyspnea, hypoxia to 88%, elevated ETC02 of 50's, and tachypnea. Per the medics, she was seen here yesterday morning, was diagnosed with chf, was sent directly to dialysis which went well, without problem. Early this morning, her dyspnea returned. Per the medics, she was wheezing, dyspneic, breathless. She was given solumedrol 125mg iv, nitro 2 inches, and placed on bipap. She started feeling better. Past History Travel History Traveled to [place] past 21 day No Medical History Any Pertinent Medical History? 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 FH: myocardial infarction BROTHER CABG UNCLE FH: lung cancer MOTHER (DIABETES, BRAIN TUMOR). Relation not specified for: FHx: diabetes mellitus Hx Contributory? No Review of Systems Review of Systems Constitutional: Reports: no symptoms. EENTM: Reports: no symptoms. Respiratory: Reports: no symptoms. Cardiovascular: Reports: no symptoms. GI: Reports: no symptoms. Genitourinary: Reports: no symptoms. Musculoskeletal: Reports: no symptoms. Skin: Reports: no symptoms. Neurological/Psychological: Reports: no symptoms. Hematologic/Endocrine: Reports: no symptoms. Immunologic/Allergic: Reports: no symptoms. All Other Systems: Reviewed and Negative Physical Exam Physical Exam General Appearance: well developed/nourished, moderate distress, severe distress Head: atraumatic, normal appearance Eyes: Bilateral: normal appearance. Ears, Nose, Throat: normal pharynx, normal ENT inspection Neck: normal inspection, supple, full range of motion Respiratory: accessory muscle use, wheezing, respiratory distress Cardiovascular: irregularly irregular Gastrointestinal: normal bowel sounds, soft, non-tender Extremities: normal inspection, normal capillary refill, normal range of motion, no edema Neurologic/Psych: no motor/sensory deficits, awake, alert, oriented x 3 Skin: intact, normal color, warm/dry Core Measures ACS in differential dx? No CVA/TIA Diagnosis No Sepsis Present: Yes Sepsis Focused Exam Completed? Yes Progress Differential Diagnosis: asthma, bronchitis, CHF, COPD, pneumonia Plan of Care: Orders Procedure Date/time Status EKG 05/10 557 Active EKG 05/10 453 Active BLOOD CULTURE 05/10 409 Active ARTERIAL BLOOD GAS (GEN) 05/10 407 Complete BLOOD CULTURE 05/10 407 Active TROPONIN LEVEL 05/10 407 Complete LIPASE 05/10 407 Complete HEPATIC FUNCTION PANEL 05/10 407 Complete CBC WITHOUT DIFFERENTIAL 05/10 407 Complete BASIC METABOLIC PANEL 05/10 407 Complete AMYLASE 05/10 407 Complete EKG 05/10 407 Active Current Medications Sig/Kathy Start time Last Medication Dose Stop Time Status Admin Azithromycin 500 MG ONCE ONE 05/10 414 CAN (Zithromax) 05/10 513 Dextrose/Water 250 ML (D5W) Laboratory Tests 05/10/17439: pH 7.32 L, pCO2 41, pO2 97, HCO3 21, ABG O2 Sat (Measured) 94.0 L, P-50 (Temp Corrected) N, Carboxyhemoglobin 1.2 L, O2 Concentration % 15LPM, O2 Delivery Method AMBULANCE CPAP, Phlebotomy Draw Site RIGHT RADIAL 05/10/17434: CBC w Diff NO MAN DIFF REQ, RBC 4.34, MCV 85.7, MCH 26.8 L, MCHC 31.2 L, RDW 18.3 H, MPV 9.9, Gran % 81.6 H, Lymphocytes % 7.3 L, Monocytes % 10.0 H, Eosinophils % 0.7, Basophils % 0.4, Absolute Granulocytes 5.3, Absolute Lymphocytes 0.5 L, Absolute Monocytes 0.7 H, Absolute Eosinophils 0, Absolute Basophils 0 05/10/17424: Anion Gap 16, Estimated GFR 10 L, BUN/Creatinine Ratio 7.7, Glucose 102 H, Calcium 8.5, Total Bilirubin 0.6, Direct Bilirubin 0.6 H, AST 24, ALT 21, Alkaline Phosphatase 82, Troponin I 0.04, Total Protein 6.2 L, Albumin 3.8, Amylase 55, Lipase 89 Microbiology 05/10 446 BLOOD: Blood Culture - RECD 05/10 434 BLOOD: Blood Culture - RECD Diagnostic Imaging: Viewed by Me: Radiology Read. Discussed w/RAD: Radiology Read. CXR Impression: PATIENT: BHARATI VELAZQUEZ PRESENT AGE: 56 PATIENT ACCOUNT NO: [id number] : 58 LOCATION: [facility] ORDERING PHYSICIAN: Siva Cornell MD SERVICE DATE: 05/10/17 EXAM TYPE: RAD - XRY- PORTABLE CHEST XRAY EXAMINATION: XR PORTABLE CHEST CLINICAL INFORMATION: Dyspnea COMPARISON: 05/09/2017 TECHNIQUE: Portable frontal view of the chest was obtained. FINDINGS: Right IJ dual-lumen catheter tip lies at the level of the proximal right atrium. Lung volumes are symmetric. No focal consolidation is seen. No evidence of pneumothorax, significant pleural effusion, or overt pulmonary edema. The cardiac silhouette remains enlarged. No acute osseous findings are seen. IMPRESSION: No acute pulmonary findings identified. Enlarged cardiac silhouette. DICTATED BY: Federico Conklin MD DATE/TIME DICTATED:05/10/17429 PROGRAMMER ANALYST:SAULO DATE/TIME TRANSCRIBED:05/10/17429 CONFIDENTIAL, DO NOT COPY WITHOUT APPROPRIATE AUTHORIZATION. <Electronically signed in Other Vendor System> SIGNED BY: Federico Conklin MD 05/10/17434 Initial ED EKG: computer reads "afib", but likely p waves prior to qrs complex with pvc's. Repeat EKG: unchanged (nsr w/trigeminy) Departure Departure Disposition: HOME OR SELF CARE Condition: Stable Clinical Impression Primary Impression: COPD exacerbation Secondary Impressions: Afib, CHF (congestive heart failure), Sepsis, Ventricular trigeminy Referrals: Mika ELAIEN,Maurice Stover (PCP/Family) Departure Forms: Customer Survey General Discharge Information Admission Note Spoke With: Kamlesh ELAINE,Yajaira Documentation of Exam: Documentation of any treatments & extenuating circumstances including Concerns Regarding Discharge (functional status, medication knowledge or non-compliance, living conditions, etc.) that warrant an admission rather than observation: pt with copd/chf, now stable on bipap... abnormal ekg with trigeminy (not afib as computer reads).... pt merits bipap/02 support, cards eval, iv steroids,abx, electrolyte management. Critical Care Note Critical Care Note Critical Care Time: 30-74 min
--- NOTE | 2017-05-10 04:35 | RADIOLOGY REPORT ---
EXAMINATION: XR PORTABLE CHEST CLINICAL INFORMATION: Dyspnea COMPARISON: 05/09/2017 TECHNIQUE: Portable frontal view of the chest was obtained. FINDINGS: Right IJ dual-lumen catheter tip lies at the level of the proximal right atrium. Lung volumes are symmetric. No focal consolidation is seen. No evidence of pneumothorax, significant pleural effusion, or overt pulmonary edema. The cardiac silhouette remains enlarged. No acute osseous findings are seen. IMPRESSION: No acute pulmonary findings identified. Enlarged cardiac silhouette.
[2017-05-10 05:01] LABS: ABSOLUTE BASOPHIL COUNT 0 /CUMM (0.0-0.2); ABSOLUTE EOSINOPHIL COUNT 0 /CUMM (0.0-0.7); ABSOLUTE GRANULOCYTE CT 5.3 /CUMM (1.4-6.5); ABSOLUTE LYMPH COUNT 0.5 /CUMM (1.2-3.4); ABSOLUTE MONOCYTE COUNT 0.7 /CUMM (0.10-0.60); BASOPHIL % 0.4 % (0.0-2.0); EOSINOPHIL % 0.7 % (0-5); GRANULOCYTE % 81.6 % (42.2-75.2); HEMATOCRIT 37.3 % (37-47); MEAN CORPUSCULAR HGB 26.8 PG (27.0-31.0); MEAN CORPUSCULAR HGB CONC 31.2 G/DL (33.0-37.0); MEAN CORPUSCULAR VOLUME 85.7 FL (81.0-99.0); MEAN PLATELET VOLUME 9.9 FL (7.4-10.4); PLATELET COUNT 184 /CUMM (130-400); RBC DISTRIBUTION WIDTH 18.3 % (11.5-14.5); RED BLOOD CELL CT 4.34 /CUMM (4.20-5.40); WHITE BLOOD CELL COUNT 6.5 /CUMM (4.8-10.8)
[2017-05-10] MEDS ORDERED: ALBUTEROL2.5 MG/3 M INH/SOL (08:44)
[2017-05-10] MEDS ORDERED: SINEMET 10-1001 EACH PO (08:46)
[2017-05-10] MEDS ORDERED: KLONOPIN0.5 M1 PO (08:47)
[2017-05-10] MEDS ORDERED: VITAMIN B-121000 MC3 PO (08:48)
[2017-05-10] MEDS ORDERED: LABETALOL HCL100 M1 PO (08:49)
[2017-05-10] MEDS ORDERED: LEVETIRACE500 MG/51 PO (08:50)
[2017-05-10] MEDS ORDERED: COZAAR50 M1 PO (08:51)
[2017-05-10] MEDS ORDERED: ROPINIROLE HCL0.5 MG PO (08:52)
[2017-05-10] MEDS ORDERED: DELTASONE20 MG PO (08:53)
[2017-05-10] MEDS ORDERED: LYRICA75 M1 PO (08:53)
[2017-05-10] MEDS ORDERED: ULTRAM50 M1 PO (09:00)
--- NOTE | 2017-05-10 09:15 | History & Physical ---
See Addendum General Information and HPI MD Statement: I have seen and personally examined BHARATI LE and documented this H&P. The patient is a 56 year old F who presented with a patient stated chief complaint of []. History of Present Illness: Miss Le is a 56-year-old woman with past medical history significant for lupus, renal artery stenosis and lupus nephritis, end-stage renal disease on hemodialysis, hyperlipidemia, Mnire's disease, diabetes mellitus with neuropathy, hypertension, hypothyroidism, gastric bypass in 2001, intracranial hemorrhage in 2015, Crohn's disease who presents to [facility] ED for persistent shortness of breath at rest. Patient has a complicated medical as well as neurological history, but it seems most of her issues stem from lupus and multiple hemorrhages with resultant seizures. Patient was here yesterday at [facility] ED for shortness of breath symptoms. The patient states she was put on BiPAP yesterday and then sent from ED for dialysis. The patient felt somewhat better after the dialysis, but continued experiencing some difficulty breathing and shortness of breath. She was very short of breath and wheezing when she went to bed last night and then this morning she was wheezing again, it prompted her to come to the ED. She denied any chest pain, palpitations, worsening leg swelling. Of note, patient started developing cough with yellow sputum production on . Following that, she thought her breathing was worsening. She lives alone at home and hasn 't encountered any sick contacts. No recent travel. She doesn't have a cat at home which she had for 10 years. No fevers or chills reported. In the ED, she was put on BiPAP this morning. During the interview, BiPAP was taken off and the patient was put on 3 L oxygen nasal cannula. Her oxygen saturations were 89 at that time, and subsequently oxygen was put to 4 L, oxygen saturations came up to mid 90s. She has no formal diagnosis of asthma, she is a nonsmoker. But she does take albuterol as needed. She follows no lung Dr. and hasn't had any PFTs done. Her rheumatological disease is followed by her primary doctor in [place] Dr. Brennan. Zeinab Doll MD is her switchboard wirer. Vikram Duarte MD is her billet checker. Patient is anuric. On dialysis Tuesday, compliant with dialysis but not with diet she states. She has a catheter for dialysis in place which was put about a month ago, because her AV fistula "wasn't working"and there has been some question regarding Plavix use. Her neurologist is up at [facility]. Allergies/Medications Allergies: Coded Allergies: Penicillins (Intermediate, RASH 05/10/17) erythromycin base (Intermediate, ANAPHYLAXIS 05/10/17) vancomycin (Intermediate, WHEEZING 05/10/17) Gadolinium-Containing Contrast Medi (PT ONLY HAS ONE KIDNEY - LEFT KIDNEY ) Iodinated Contrast- Oral and IV Dye (IODINATED CONTRAST MEDIA - ORAL AND) (PT HAS ONLY ONE KIDNEY - LEFT KIDNEY PER PT MED LIST 05/10/17) cefazolin (PER PT MED LIST 05/10/17) clindamycin (PER PT MED LIST 05/10/17) neomycin (PER PT MED LIST 05/10/17) Home Med list Albuterol Sulfate 2.5 MG/3 ML (0.083 %) VIAL.NEB 1 Vial INH/GERI Q6P PRN BREATHING (Reported) Albuterol Sulfate (Proair Hfa) 90 MCG HFA.AER.AD 1-2 PUFF INH PRN ASTHMA ( Reported) Amlodipine Besylate (Norvasc) 10 MG TABLET 1 TAB PO DAILY HTN (Reported) Ascorbate Calcium (Vitamin C) 500 MG TABLET 1 TAB PO AD SUPPLEMENT (Reported) Atorvastatin Calcium (Lipitor) 40 MG TABLET 1 TAB PO DAILY STROKE (Reported) Bioflav,Lemon/Vit Bcomp,C (Lipo-Flavonoid Plus Caplet) (Unknown Strength) TABLET (Unknown Dose) PO AD MENIERES DISEASE (Reported) Calcium Carbonate (Calcium) 600 MG (1,500 MG) TABLET 1 TAB PO AD SUPPLEMENT ( Reported) Carbidopa/Levodopa (Sinemet 10-100 MG Tablet) 10 MG-100 MG TABLET 1 TAB PO DAILY PARKINSONS (Reported) Carvedilol (Coreg) 25 MG TABLET 1 TAB PO BID BP (Reported) Cholecalciferol (Vitamin D3) (Vitamin D) (Unknown Strength) TABLET (Unknown Dose) PO AD SUPPLEMENT (Reported) Clonazepam (Klonopin) 0.5 MG TABLET 1 TAB PO DAILY MENTAL (Reported) Cyanocobalamin (Vitamin B-12) 1,000 MCG TABLET 1 TAB PO DAILY SUPPLEMENT ( Reported) Ergocalciferol (Vitamin D2) (Vitamin D2) 50,000 UNIT CAPSULE 1 CAP PO Q2W SUPPLEMENT (Reported) Escitalopram Oxalate (Lexapro) 20 MG TABLET 1 TAB PO DAILY DEPRESSION ( Reported) Ferrous Gluconate (IRON) 240 MG (27 MG IRON) TABLET 1 TAB PO AD SUPPLEMENT ( Reported) Hydroxychloroquine Sulfate 200 MG TABLET 1 TAB PO DAILY LUPUS (Reported) Labetalol HCl 100 MG TABLET 1 TAB PO Q8 BP (Reported) Lacosamide (Vimpat) 200 MG TABLET 1 TAB PO QPM SEIZURES (Reported) Lacosamide (Vimpat) 100 MG TABLET 1 TAB PO QAM SEIZURES (Reported) Lactobacillus Acidophilus (Probiotic) (Unknown Strength) CAPSULE (Unknown Dose ) PO AD PROBIOTIC (Reported) Levetiracetam 500 MG/5 ML (5 ML) SOLUTION 10 ML PO MWF AFTER DIALYSIS ( Reported) Levetiracetam (Keppra) 500 MG TABLET 1 TAB PO BID SEIZURES (Reported) Levothyroxine Sodium (Synthroid) 88 MCG TABLET 1 TAB PO DAILY THYROID ( Reported) Losartan Potassium (Cozaar) 50 MG TABLET 1 TAB PO DAILY HTN (Reported) Moxifloxacin HCl (Avelox) 400 MG TABLET 1 TAB PO AD PRIOR TO DENTAL PROCEDURES (Reported) Multivitamin (Multivitamins) 1 EACH CAPSULE 1 TAB PO D HEALTH SUPPLEMENT ( Reported) Prednisone (Deltasone) 20 MG TABLET 0.5 MG PO DAILY LUPUS (Reported) Pregabalin (Lyrica) 75 MG CAPSULE 1 CAP PO DAILY PAIN (Reported) Ropinirole HCl 0.5 MG TABLET 1 TAB PO QPM RESTLESS LEGS (Reported) Tramadol HCl (Ultram) 50 MG TABLET 1 TAB PO DAILY PRN PAIN (Reported) Ubidecarenone (Co Q-10) 100 MG CAPSULE 1 CAP PO AD SUPPLEMENT (Reported) Zolpidem Tartrate (Ambien) (Unknown Strength) TABLET (Unknown Dose) PO PRN SLEEP (Reported) Past History Travel History Traveled to [place] past 21 day No Medical History Neurological: CVA, restless leg syndrome, seizure, amyloid angiopathy EENT: NONE Cardiovascular: hypertension, carotid artery stenosis Respiratory: NONE Gastrointestinal: NONE Hepatic: NONE Renal: CHR KIDNEY,DIALYSIS lupus nephritis renal artery stenosis s/p stent placement only one functioning kidney Musculoskeletal: NONE Psychiatric: NONE Endocrine: NONE Blood Disorders: NONE Cancer(s): NONE HEEL EDGE INKER MACHINE/Reproductive: NONE Other Medical Hx: SLE History of MRSA: No History of VRE: No History of CDIFF: No Surgical History Surgical History: cholecystectomy, knee replacement, left hip ORIF renal artery stent placement carotid endarterectomy Past Family/Social History Family History Relations & Conditions if any FATHER, , Age 60+. FH: myocardial infarction BROTHER CABG UNCLE FH: lung cancer MOTHER (DIABETES, BRAIN TUMOR). Relation not specified for: FHx: diabetes mellitus Psychosocial History Who Do You Live With? self Services at Home: Nursing, Occupational Therapy, Physical Therapy, Speech Therapy Functional Ability ADLs Needs Assist: bathing. IADLs Needs Assist: housework. Review of Systems Review of Systems Constitutional: Reports: see HPI. Exam & Diagnostic Data Last 24 Hrs of Vital Signs/I&O Vital Signs Date Time Temp Pulse Resp B/P B/P Pulse O2 O2 Flow FiO2 Mean Ox Delivery Rate 05/10 0816 98.0 60 22 147/98 93 Nasal 4.0L Cannula 05/10 0628 97.3 60 24 166/77 100 BIPAP 40% 05/10 0529 97.7 60 2 169/73 100 BIPAP 40% 05/10 0510 60 99 05/10 0430 100 BIPAP 40% 05/10 0410 96.0 61 26 174/85 100 Intake & Output 05/10 1600 05/10 0800 05/10 0000 Intake Total Output Total Balance Patient 208 lb Weight Weight Reported by Patient Measurement Method Physical Exam General Appearance Alert, Oriented X3, Cooperative HEENT Atraumatic, PERRLA, EOMI, mucous membranes dry. Neck Supple, No JVD Cardiovascular Regular Rate, Normal S1, Normal S2 Lungs decreased air entry bilaterally. Transmitted sounds from retained tracheal secretions. No wheezing. Abdomen Normal Bowel Sounds, Soft, No Tenderness Extremities No Clubbing, No Cyanosis, No Edema Vascular Normal Pulses, Pulses Symmetrical Last 24 Hrs of Labs/Deangelo: Laboratory Tests 05/10/17 0440: pH 7.32 L, pCO2 41, pO2 97, HCO3 21, ABG O2 Sat (Measured) 94.0 L, P-50 (Temp Corrected) N, Carboxyhemoglobin 1.2 L, O2 Concentration % 15LPM, O2 Delivery Method AMBULANCE CPAP, Phlebotomy Draw Site RIGHT RADIAL 05/10/17 0435: CBC w Diff NO MAN DIFF REQ, RBC 4.34, MCV 85.7, MCH 26.8 L, MCHC 31.2 L, RDW 18.3 H, MPV 9.9, Gran % 81.6 H, Lymphocytes % 7.3 L, Monocytes % 10.0 H, Eosinophils % 0.7, Basophils % 0.4, Absolute Granulocytes 5.3, Absolute Lymphocytes 0.5 L, Absolute Monocytes 0.7 H, Absolute Eosinophils 0, Absolute Basophils 0 05/10/17 0425: Anion Gap 16, Estimated GFR 10 L, BUN/Creatinine Ratio 7.7, Glucose 102 H, Calcium 8.5, Phosphorus Pending, Magnesium Pending, Total Bilirubin 0.6, Direct Bilirubin 0.6 H, AST 24, ALT 21, Alkaline Phosphatase 82, Troponin I 0.04, Pro- B-Natriuretic Pept 97407 H, Total Protein 6.2 L, Albumin 3.8, Amylase 55, Lipase 89 Microbiology 05/10 7929 NASOPHARYN: Influenza Virus A & B Rapid Smear - ORD 05/10 446 BLOOD: Blood Culture - RECD 05/10 615 BLOOD: Blood Culture - RECD Diagnostic Data EKG Results Sinus rhythm, with frequent PVCs. CXR Results 05/09/17 IMPRESSION: 1. Lungs are hypoinflated. 2. Cardiomegaly without acute interstitial edema, overt consolidation or other significant interval change. 05/10/17 IMPRESSION: No acute pulmonary findings identified. Enlarged cardiac silhouette. Assessment/Plan Assessment: 56-year-old woman with multiple comorbidities end-stage renal disease secondary to lupus nephritis on hemodialysis, with recent upper respiratory illness, with subsequent breathing difficulty shortness of breath, chest x-ray on 05/09/2017 revealing acute interstitial edema-subsequently underwent dialysis with chest x- ray reading on 05/10/2017 stating no acute pulmonary findings but both x-rays revealing low lung volumes and hypoexpanded lungs merits admission for workup of compromised breathing. Patient also has frequent PVCs, and was also found to have low potassium following dialysis, she has enlarged cardiac silhouette on chest x-ray will require her to be on telemetry for at least 24 hours and have cardiology evaluation. 1. Shortness of breath: Secondary to fluid overload, as suggested by x-ray on 05/09/2017 versus recent upper respiratory infection resulting in bronchospasm and bronchitis versus lower oxygen saturations due to immobilization and hypoexpanded lungs. TRC. Inhaled beta agonist when necessary. IV steroids. Mucinex. Encourage ambulation and incentive spirometry. Pulmonary evaluation. Peak flow measurement and formal PFTs. 2. Ventricular ectopy. Sinus rhythm on EKG, with frequent PVCs. Check echocardiogram. Replete potassium. Replete magnesium as needed. Continue beta amadou, she is on Coreg and labetalol. Cardiology evaluation, for ventricular ectopy as well as evidence of fluid overload per chest x-ray 05/09/2017. 3. End-stage renal disease on hemodialysis. Wednesdays. Nephrology consult. Renal dialysis diet. 4. Seizure disorder. Continue levetiracetam and Vimpat. 5. Hypertension. Continue amlodipine, losartan and labetalol. 6. History of lupus. Continue hydroxychloroquine PT evaluation. DNR/DNI. Renal dialysis diet. Heparin for DVT prophylaxis. As Ranked By This Provider Problem List: 1. Volume overload Core Measures/Misc (12/12) Acute Coronary Syndrome ACS Diagnosis: No Congestive Heart Failure Congestive Heart Failure Diagnosis No Cerebrovascular Accident CVA/TIA Diagnosis: No VTE (View Protocol) VTE Risk Factors Age>40 No Mechanical VTE Prophylaxis d/t N/A MechProphylax Ordered No VTE Pharm Prophylaxis d/t NA PharmProphylax ordered Sepsis (View protocol) Sepsis Present: No
--- NOTE | 2017-05-10 12:40 | Cons- Nephrology ---
General Information and HPI Consulting Request Date of Consult: 05/10/17 Requested By: Kamlesh ELAINE,Yajaira Reason for Consult: SOB & ESRD Source of Information: patient, old records Exam Limitations: no limitations History of Present Illness: 56 yr old WF w mult med problems including morbid obesity s/p gastric bypass, SLE, HTN, CVA, Sz disorder, & diffuse ASVCDx including bilateral RVdx s/p failed interventions leading to bilateral RA occlusion & ESRD. Developed wheezing, cough productive yellow sputum, & increased SOB starting last week. In ED yesterday & sent to outpt HD where near target wt & further UF limited by hypotension. Still SOB today w hypoxia; no CP, hemoptysis, fever, or rigors. No vomiting. Nonsmoker. Has thrombosed KANDI AVG w tunneled R IJ HD cath as HD access for ~ last 3 wks. Allergies/Medications Allergies: Coded Allergies: Penicillins (Intermediate, RASH 05/10/17) erythromycin base (Intermediate, ANAPHYLAXIS 05/10/17) vancomycin (Intermediate, WHEEZING 05/10/17) Gadolinium-Containing Contrast Medi (PT ONLY HAS ONE KIDNEY - LEFT KIDNEY ) Iodinated Contrast- Oral and IV Dye (IODINATED CONTRAST MEDIA - ORAL AND) (PT HAS ONLY ONE KIDNEY - LEFT KIDNEY PER PT MED LIST 05/10/17) cefazolin (PER PT MED LIST 05/10/17) clindamycin (PER PT MED LIST 05/10/17) neomycin (PER PT MED LIST 05/10/17) Home Med List: Albuterol Sulfate 2.5 MG/3 ML (0.083 %) VIAL.NEB 1 Vial INH/GERI Q6P PRN BREATHING (Reported) Albuterol Sulfate (Proair Hfa) 90 MCG HFA.AER.AD 1-2 PUFF INH PRN ASTHMA ( Reported) Amlodipine Besylate (Norvasc) 10 MG TABLET 1 TAB PO DAILY HTN (Reported) Ascorbate Calcium (Vitamin C) 500 MG TABLET 1 TAB PO AD SUPPLEMENT (Reported) Atorvastatin Calcium (Lipitor) 40 MG TABLET 1 TAB PO DAILY STROKE (Reported) Bioflav,Lemon/Vit Bcomp,C (Lipo-Flavonoid Plus Caplet) (Unknown Strength) TABLET (Unknown Dose) PO AD MENIERES DISEASE (Reported) Calcium Carbonate (Calcium) 600 MG (1,500 MG) TABLET 1 TAB PO AD SUPPLEMENT ( Reported) Carbidopa/Levodopa (Sinemet 10-100 MG Tablet) 10 MG-100 MG TABLET 1 TAB PO DAILY PARKINSONS (Reported) Carvedilol (Coreg) 25 MG TABLET 1 TAB PO BID BP (Reported) Cholecalciferol (Vitamin D3) (Vitamin D) (Unknown Strength) TABLET (Unknown Dose) PO AD SUPPLEMENT (Reported) Clonazepam (Klonopin) 0.5 MG TABLET 1 TAB PO DAILY MENTAL (Reported) Cyanocobalamin (Vitamin B-12) 1,000 MCG TABLET 1 TAB PO DAILY SUPPLEMENT ( Reported) Ergocalciferol (Vitamin D2) (Vitamin D2) 50,000 UNIT CAPSULE 1 CAP PO Q2W SUPPLEMENT (Reported) Escitalopram Oxalate (Lexapro) 20 MG TABLET 1 TAB PO DAILY DEPRESSION ( Reported) Ferrous Gluconate (IRON) 240 MG (27 MG IRON) TABLET 1 TAB PO AD SUPPLEMENT ( Reported) Hydroxychloroquine Sulfate 200 MG TABLET 1 TAB PO DAILY LUPUS (Reported) Labetalol HCl 100 MG TABLET 1 TAB PO Q8 BP (Reported) Lacosamide (Vimpat) 200 MG TABLET 1 TAB PO QPM SEIZURES (Reported) Lacosamide (Vimpat) 100 MG TABLET 1 TAB PO QAM SEIZURES (Reported) Lactobacillus Acidophilus (Probiotic) (Unknown Strength) CAPSULE (Unknown Dose ) PO AD PROBIOTIC (Reported) Levetiracetam 500 MG/5 ML (5 ML) SOLUTION 10 ML PO MWF AFTER DIALYSIS ( Reported) Levetiracetam (Keppra) 500 MG TABLET 1 TAB PO BID SEIZURES (Reported) Levothyroxine Sodium (Synthroid) 88 MCG TABLET 1 TAB PO DAILY THYROID ( Reported) Losartan Potassium (Cozaar) 50 MG TABLET 1 TAB PO DAILY HTN (Reported) Moxifloxacin HCl (Avelox) 400 MG TABLET 1 TAB PO AD PRIOR TO DENTAL PROCEDURES (Reported) Multivitamin (Multivitamins) 1 EACH CAPSULE 1 TAB PO D HEALTH SUPPLEMENT ( Reported) Prednisone (Deltasone) 20 MG TABLET 0.5 MG PO DAILY LUPUS (Reported) Pregabalin (Lyrica) 75 MG CAPSULE 1 CAP PO DAILY PAIN (Reported) Ropinirole HCl 0.5 MG TABLET 1 TAB PO QPM RESTLESS LEGS (Reported) Tramadol HCl (Ultram) 50 MG TABLET 1 TAB PO DAILY PRN PAIN (Reported) Ubidecarenone (Co Q-10) 100 MG CAPSULE 1 CAP PO AD SUPPLEMENT (Reported) Zolpidem Tartrate (Ambien) (Unknown Strength) TABLET (Unknown Dose) PO PRN SLEEP (Reported) Current Medications: Current Medications Sig/Kathy Start time Last Medication Dose Route Stop Time Status Admin Albuterol Sulfate 2 PUF Q6P PRN 05/10 0900 AC INH Albuterol Sulfate 3 ML Q6P PRN 05/10 0900 AC INH Amlodipine Besylate 10 MG DAILY 05/10 1000 AC 05/10 PO 1038 Atorvastatin Calcium 40 MG 1700 05/10 1700 AC PO Azithromycin 500 MG ONCE ONE 05/10 0415 CAN Dextrose/Water 250 ML IV 05/10 0514 Carbidopa/Levodopa 1 TAB DAILY 05/10 1000 AC 05/10 PO 1038 Carvedilol 25 MG BID 05/10 1000 AC 05/10 PO 1038 Clonazepam 0 .STK-MED ONE 05/10 1029 DC PO Clonazepam 0.5 MG DAILY 05/10 1000 AC 05/10 PO 05/17 0959 1038 Cyanocobalamin 1,000 MCG DAILY 05/10 1000 AC 05/10 PO 1038 Escitalopram Oxalate 20 MG DAILY 05/10 1000 AC 05/10 PO 1038 Ferrous Gluconate 325 MG DAILY 05/10 1000 AC 05/10 PO 1038 Guaifenesin 600 MG Q12 05/10 1000 AC 05/10 PO 1038 Heparin Sodium 5,000 UNIT Q8 05/10 1400 AC (Porcine) SC Hydroxychloroquine 200 MG DAILY 05/10 1000 AC 05/10 Sulfate PO 1038 Labetalol HCl 100 MG Q8 05/10 1400 DC PO Lacosamide 200 MG QPM 05/10 2200 AC PO Lacosamide 100 MG QAM 05/10 1000 AC 05/10 PO 1038 Levetiracetam 1,000 MG MoWeFr 05/11 0920 AC PO Levetiracetam 10 MG MoWeFr 05/11 0918 DC PO Levetiracetam 500 MG BID 05/10 1000 AC 05/10 PO 1038 Levothyroxine Sodium 0.088 MG DAILY AC 05/10 1000 AC 05/10 PO 1038 Losartan Potassium 50 MG DAILY 05/10 1000 AC 05/10 PO 1038 Methylprednisolone 40 MG Q12 05/10 1000 AC 05/10 IV 05/11 2201 1038 Non-Formulary 0 SEE ADMIN CRITERIA 05/10 0900 CAN Medication ANY Potassium Chloride 0 .STK-MED ONE 05/10 1029 DC PO Potassium Chloride 40 MEQ ONCE ONE 05/10 1000 DC 05/10 PO 05/10 1001 1038 Potassium Chloride 0 .STK-MED ONE 05/10 0818 DC PO Potassium Chloride 40 MEQ ONCE ONE 05/10 0800 DC 05/10 PO 05/10 0801 0817 Pregabalin 75 MG DAILY 05/10 1000 AC 05/10 PO 1038 Ropinirole HCl 0.5 MG QPM 05/10 2200 AC PO Tramadol HCl 50 MG DAILY NEEDED PRN 05/10 0900 AC PO Trimethoprim/ 1 TAB ONCE ONE 05/10 0500 DC 05/10 Sulfamethoxazole PO 05/10 0501 0458 Trimethoprim/ 0 .STK-MED ONE 05/10 0454 DC Sulfamethoxazole PO Review of Systems Review of Systems Constitutional: Reports: no symptoms. EENTM: Reports: no symptoms. Cardiovascular: Reports: no symptoms. Respiratory: Denies: see HPI. GI: Reports: diarrhea. Genitourinary: Reports: no symptoms. Musculoskeletal: Reports: no symptoms. Skin: Reports: no symptoms. Neurological/Psychological: Reports: no symptoms. Hematologic/Endocrine: Reports: no symptoms. Immunologic/Allergic: Reports: no symptoms. All Other Systems: Reviewed and Negative Past History Travel History Traveled to [place] past 21 day No Medical History Neurological: CVA, restless leg syndrome, seizure, amyloid angiopathy EENT: NONE Cardiovascular: hypertension, carotid artery stenosis Respiratory: NONE Gastrointestinal: Crohn's disease, SBO requiring surg Hepatic: NONE Renal: CHRONIC KIDNEY,DIALYSIS renal artery stenosis s/p stent placement only one functioning kidney Musculoskeletal: SLE Psychiatric: NONE Endocrine: NONE Blood Disorders: NONE Cancer(s): NONE PRESSURE CONTROLLER/Reproductive: NONE Other Medical Hx: SLE Surgical History Surgical History: cholecystectomy, knee replacement, left hip ORIF renal artery stent placement carotid endarterectomy Family History Relations & Conditions If Any: FATHER, , Age 60+. FH: myocardial infarction BROTHER CABG UNCLE FH: lung cancer MOTHER (DIABETES, BRAIN TUMOR). Relation not specified for: FHx: diabetes mellitus Psychosocial History Who Do You Live With? self Services at Home: Nursing, Occupational Therapy, Physical Therapy, Speech Therapy Smoking Status: Never Smoked ETOH Use: denies use Functional Ability ADLs Needs Assist: bathing. IADLs Needs Assist: housework. Employment History Employment: Disability Exam & Diagnostic Data Vital Signs and I&O Vital Signs Date Time Temp Pulse Resp B/P B/P Pulse O2 O2 Flow FiO2 Mean Ox Delivery Rate 05/10 1038 97.9 68 20 17605/10 1038 97.9 68 20 05/10 1038 97.9 68 20 17605/10 0816 98.0 60 22 147/98 93 Nasal 4.0L Cannula 05/10 06 97.3 60 24 166/77 100 BIPAP 40% 05/10 0529 97.7 60 2 169/73 100 BIPAP 40% 05/10 0510 60 99 05/10 0430 100 BIPAP 40% 05/10 0410 96.0 61 26 174/85 100 Intake & Output 05/10 1600 05/10 0400 05/09 04005/08 040 Intake Total Output Total Balance Patient 208 lb Weight Weight Reported by Patient Measurement Method Physical Exam General Appearance: well developed/nourished, no apparent distress, alert, awake Head: atraumatic, normal appearance Eyes: Bilateral: normal appearance. 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 II- XII nml as tested Skin: intact, normal color, warm/dry, tatoo back Lymphatic: no anterior cervical merrill, no axillary adenopathy Results Pertinent Lab Results: Laboratory Tests 05/10 05/10 0440 0435 Blood Gas pH (7.35 - 7.45 PH) 7.32 L pCO2 (35 - 45 TORR) 41 pO2 (80 - 100 TORR) 97 HCO3 (21 - 28 MEQ/L) 21 ABG O2 Sat (Measured) (>96.0 %) 94.0 L P-50 (Temp Corrected) N Carboxyhemoglobin (1.5 - 5.0 %) 1.2 L O2 Concentration % 15LPM O2 Delivery Method AMBULANCE CPAP Hematology CBC w Diff NO MAN DIFF REQ WBC (4.8 - 10.8 /CUMM) 6.5 RBC (4.20 - 5.40 /CUMM) 4.34 Hgb (12.0 - 16.0 G/DL) 11.6 L Hct (37 - 47 %) 37.3 MCV (81.0 - 99.0 FL) 85.7 MCH (27.0 - 31.0 PG) 26.8 L MCHC (33.0 - 37.0 G/DL) 31.2 L RDW (11.5 - 14.5 %) 18.3 H Plt Count (130 - 400 /CUMM) 184 MPV (7.4 - 10.4 FL) 9.9 Gran % (42.2 - 75.2 %) 81.6 H Lymphocytes % (20.5 - 51.1 %) 7.3 L Monocytes % (1.7 - 9.3 %) 10.0 H Eosinophils % (0 - 5 %) 0.7 Basophils % (0.0 - 2.0 %) 0.4 Absolute Granulocytes (1.4 - 6.5 /CUMM) 5.3 Absolute Lymphocytes (1.2 - 3.4 /CUMM) 0.5 L Absolute Monocytes (0.10 - 0.60 /CUMM) 0.7 H Absolute Eosinophils (0.0 - 0.7 /CUMM) 0 Absolute Basophils (0.0 - 0.2 /CUMM) 0 Miscellaneous Phlebotomy Draw Site RIGHT RADIAL 05/10 0425 Chemistry Sodium (137 - 145 mmol/L) 141 Potassium (3.5 - 5.1 mmol/L) 3.3 L Chloride (98 - 107 mmol/L) 102 Carbon Dioxide (22 - 30 mmol/L) 22 Anion Gap (5 - 16) 16 BUN (7 - 17 mg/dL) 34 H Creatinine (0.5 - 1.0 mg/dL) 4.4 H Estimated GFR (>60 ml/min) 10 L BUN/Creatinine Ratio (7 - 25 %) 7.7 Glucose (65 - 99 mg/dL) 102 H Calcium (8.4 - 10.2 mg/dL) 8.5 Phosphorus (2.5 - 4.5 mg/dL) 5.1 H Magnesium (1.6 - 2.3 mg/dL) 1.9 Total Bilirubin (0.2 - 1.3 mg/dL) 0.6 Direct Bilirubin (< 0.4 mg/dL) 0.6 H AST (14 - 36 U/L) 24 ALT (9 - 52 U/L) 21 Alkaline Phosphatase (<127 U/L) 82 Troponin I (< 0.11 ng/ml) 0.04 Wwr-W-Dpmsyppxmma Pept (<125 pg/mL) 68305 H Total Protein (6.3 - 8.2 g/dL) 6.2 L Albumin (3.5 - 5.0 g/dL) 3.8 Amylase (30 - 110 U/L) 55 Lipase (23 - 300 U/L) 89 Imaging/Other Studies: EXAMINATION: XR PORTABLE CHEST CLINICAL INFORMATION: Dyspnea COMPARISON: 05/09/2017 TECHNIQUE: Portable frontal view of the chest was obtained. FINDINGS: Right IJ dual-lumen catheter tip lies at the level of the proximal right atrium. Lung volumes are symmetric. No focal consolidation is seen. No evidence of pneumothorax, significant pleural effusion, or overt pulmonary edema. The cardiac silhouette remains enlarged. No acute osseous findings are seen. IMPRESSION: No acute pulmonary findings identified. Enlarged cardiac silhouette. Assessment/Plan Assessment/Recommendations Assessment: 1. ESRD: due to severe RVDx; last HD yesterday & w/o dialysis imperative today 2. SOB: not volume overloaded. Suspect pulm infection --> bronchospasm. PE possible & no objection to either V/Q or CTA to exclude Recommendations: 1. Pulm consult 2. V/Q or Pulm CTA 3. HD tomorrow 4. EPO w HD 5. Calcitriol IV w HD 6. Sevelamer 800 mg w meals
--- NOTE | 2017-05-10 16:01 | Admission Certification ---
Admission Certification Certification Statement - As attending physician, I certify that at the time of - admission, based on clinical presentation, severity of - symptoms, need for further diagnostic testing and - therapeutic interventions, and risk of adverse outcomes - without in-hospital treatment, in my clinical assessment, - this patient requires an acute hospital stay for a minimum - of two nights or longer. I have also considered psychsocial - factors such as support system, advanced age, financial - issues, cognitive issues, and failed out-patient treatments, - past re-admission history, safety of patient, and lack of - compliance as applicable. Specific rationale supporting this admission is: Acute shortness of breath possible bronchospasm and hyperreactive airway disease versus volume overload
--- NOTE | 2017-05-10 16:41 | NUCLEAR MEDICINE REPORT ---
EXAMINATION: PULMONARY VENTILATION PERFUSION STUDY CLINICAL INFORMATION: Shortness of breath. COMPARISON: No previous lung scan is available for comparison. A radiograph of the chest dated 05/10/2017, the same date as this lung scan, is available for comparison. TECHNIQUE: Serial gamma scintillation camera images were obtained over the posterior chest during the single breath, equilibrium rebreathing and washout of 8.8 mCi Xe 133 gas. The patient then received 4.4 mCi Tc-99m MAA intravenously and a 6-view perfusion study was performed. FINDINGS: Ventilation images: On the single breath and equilibrium images there is mild heterogeneity present bilaterally. Lung volume appears slightly diminished compared to the right. There is moderately severe gas trapping present diffusely in the left lung in the right lung base. Perfusion images: No segmental perfusion defects are present. Mild heterogeneity is noted bilaterally, but the distribution of perfusion appears similar to the findings on the ventilation images. There are no focal anatomic appearing perfusion defects. IMPRESSION: Very low probability of pulmonary embolism.
[2017-05-10 22:15] VITALS: BP 150/68
[2017-05-11 07:00] VITALS: BP 164/78
--- NOTE | 2017-05-11 07:53 | PN- Housestaff ---
Tejal,[facility] 05/11/17 0753: Subjective Follow-up For: -sob -ESRD on HD -HTN Complaints: SOB Subjective: Patient seen and examined she is lying on the bed comfortable with no acute distress, no events overnight, she want to leave today after dialysis even if not seen by fine arts instructor, she want to make an appointment as outpatient. She slept well overnight, she report improvement of her respiratory status, she is using spirometry and she thing that triggers cough with some clear phlegm. Vitals stable, she is still on 3L O2. Review of Systems Constitutional: Reports: no symptoms. EENTM: Reports: no symptoms. Cardiovascular: Reports: no symptoms. Respiratory: Reports: cough, short of breath, sputum production, wheezing. Gastrointestinal: Reports: no symptoms. Genitourinary: Reports: no symptoms. Objective Last 24 Hrs of Vital Signs/I&O Vital Signs Date Time Temp Pulse Resp B/P B/P Pulse O2 O2 Flow FiO2 Mean Ox Delivery Rate 05/11 1839 98.5 64 20 140/70 99 Room Air 05/11 1825 98 Room Air Intake & Output 05/12 1600 05/12 0800 05/12 0000 Intake Total 240 Output Total Balance 240 Intake, Oral 240 Physical Exam General Appearance: Alert, Oriented X3, Cooperative Assessment/Plan Problem List: 1. Bronchospasm Pain Ratin Pain Location: - Pain Goal: Remain pain free Pain Plan: - Tomorrow's Labs & Rationales: - DVT/Prophylaxis: mechanical, pharmacological Odette ELAINE,Beatrice 05/11/17 1147: Attending MD Review Statement Attending Statement Attending MD Statement: examined this patient, discuss w/resident/PA/PLUSH BRUSHER, agreed w/resident/PA/PLUSH BRUSHER, reviewed EMR data (avail), discussed with nursing, discussed with case mgmt, reviewed images Attending Assessment/Plan: Pt is very keen on leaving today. She wants her dialysis first thing in the morning and then wants to leave. I explained at length that her dialysis will probably be second shift. I also explained to her the good news of the V/Q being low probability and we think that this is all hyperreactive airway disease and bronchospasm from a preceding viral infection. She has never smoked and doesn't carry a known diagnosis of asthma. She is very keen on seeing only Dr. Bobo for her pulmonary issues. I called and spoke to Dr. Bobo who is back today from her illness and she assured me that she will stop by and see the patient. The patient also knows that she needs to make an outpatient appointment. The plan will be hemodialysis and then discharge. We'll give her a prednisone taper till she reaches her usual 20 mg a day which she takes chronically for her lupus. She is also asking for a nebulizer machine and I gave that prescription to case management although I did explain to her that of late it's been tough to get insurance companies to cover the nebulizer machine. We'll give her a laba- steroid combination like Symbicort to help with the post viral hyperreactivity and she knows she needs to follow-up with [facility].
--- NOTE | 2017-05-11 10:05 | PN- Nephrology ---
Assessment/Plan Assessment: 1. 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 SOB: bronchospam ? in setting viral resp infection; improving w steroids & bronchodilators Suggestion: HD & UF today Subjective Subjective: Less SOB - cough clear sputum No CP Objective Vital Signs and I&Os Vital Signs Date Time Temp Pulse Resp B/P B/P Pulse O2 O2 Flow FiO2 Mean Ox Delivery Rate 05/11 0700 98.2 50 20 164/78 97 Nasal Cannula 05/11 0544 98 Nasal 3.0L Cannula 05/11 0131 96 Nasal 3.0L Cannula 05/10 2220 56 05/10 2215 98.2 62 20 150/68 96 05/10 2126 93 Nasal 3.0L Cannula 05/10 1919 98.0 62 18 140/61 95 Room Air Room Air 05/10 1554 98.2 55 20 186/77 96 Room Air Room Air 05/10 1348 Nasal 3.0L Cannula 05/10 1348 96 Nasal 3.0L Cannula 05/10 1038 97.9 68 20 176/71 05/10 1038 97.9 68 20 176/71 05/10 1038 97.9 68 20 176/71 Intake & Output 05/11 1600 05/11 0400 05/10 1600 05/10 0400 05/09 1600 05/09 0400 Intake Total 310 Output Total Balance 310 Intake, IV 10 Intake, Oral 300 Patient 205 lb 208 lb 208 lb Weight Weight Bed scale Reported by Patient Reported by Patient Measurement Method Physical Exam General Appearance: well developed/nourished, no apparent distress, alert Head: atraumatic, normal appearance Ears, Nose, Throat: normal ENT inspection Respiratory: rhonchi, wheezing Cardiovascular: regular rate/rhythm Abdomen: soft, non-tender, no organomegaly Extremities: no edema, KANDI AVG thrombosed Neurologic/Psychiatric: awake, alert, oriented x 3 Current Medications: Current Medications Sig/Kathy Start time Last Medication Dose Route Stop Time Status Admin Albuterol Sulfate 3 ML BID 05/10 2199 AC 05/11 INH 0524 Albuterol Sulfate 2 PUF Q6P PRN 05/10 09 AC INH Albuterol Sulfate 3 ML Q6P PRN 05/10 0900 AC 05/10 INH 1347 Amlodipine Besylate 10 MG DAILY 05/10 1000 AC 05/10 PO 1038 Atorvastatin Calcium 40 MG 1700 05/10 1700 AC 05/10 PO 1920 Carbidopa/Levodopa 1 TAB DAILY 05/10 1000 AC 05/10 PO 1038 Carvedilol 25 MG BID 05/10 1000 AC 05/10 PO 1038 Clonazepam 0 .STK-MED ONE 05/10 1029 DC PO Clonazepam 0.5 MG DAILY 05/10 1000 AC 05/10 PO 05/17 0959 1038 Cyanocobalamin 1,000 MCG DAILY 05/10 1000 AC 05/10 PO 1038 Escitalopram Oxalate 20 MG DAILY 05/10 1000 AC 05/10 PO 1038 Ferrous Gluconate 325 MG DAILY 05/10 1000 AC 05/10 PO 1038 Guaifenesin 600 MG Q12 05/10 1000 AC 05/10 PO 2221 Heparin Sodium 5,000 UNIT Q8 05/10 1400 AC 05/11 (Porcine) SC 0538 Hydroxychloroquine 200 MG DAILY 05/10 1000 AC 05/10 Sulfate PO 1038 Labetalol HCl 100 MG Q8 05/10 1400 DC PO Lacosamide 200 MG QPM 05/10 2200 AC 05/10 PO 2249 Lacosamide 100 MG QAM 05/10 1000 AC 05/10 PO 1038 Levetiracetam 1,000 MG MoWeFr 05/11 0920 AC PO Levetiracetam 10 MG MoWeFr 05/11 0918 DC PO Levetiracetam 500 MG BID 05/10 1000 AC 05/10 PO 2221 Levothyroxine Sodium 0.088 MG DAILY AC 05/10 1000 AC 05/11 PO 0538 Losartan Potassium 50 MG DAILY 05/10 1000 AC 05/10 PO 1038 Methylprednisolone 40 MG Q12 05/10 1000 AC 05/10 IV 05/11 220 2222 Potassium Chloride 0 .STK-MED ONE 05/10 1029 DC PO Pregabalin 75 MG DAILY 05/10 1000 AC 05/10 PO 1038 Ropinirole HCl 0.5 MG QPM 05/10 2200 AC 05/10 PO 2222 Tramadol HCl 50 MG DAILY NEEDED PRN 05/10 0900 DC PO Results Pertinent Lab Results: Laboratory Tests 05/10 05/10 0440 0435 Blood Gas pH (7.35 - 7.45 PH) 7.32 L pCO2 (35 - 45 TORR) 41 pO2 (80 - 100 TORR) 97 HCO3 (21 - 28 MEQ/L) 21 ABG O2 Sat (Measured) (>96.0 %) 94.0 L P-50 (Temp Corrected) N Carboxyhemoglobin (1.5 - 5.0 %) 1.2 L O2 Concentration % 15LPM O2 Delivery Method AMBULANCE CPAP Hematology CBC w Diff NO MAN DIFF REQ WBC (4.8 - 10.8 /CUMM) 6.5 RBC (4.20 - 5.40 /CUMM) 4.34 Hgb (12.0 - 16.0 G/DL) 11.6 L Hct (37 - 47 %) 37.3 MCV (81.0 - 99.0 FL) 85.7 MCH (27.0 - 31.0 PG) 26.8 L MCHC (33.0 - 37.0 G/DL) 31.2 L RDW (11.5 - 14.5 %) 18.3 H Plt Count (130 - 400 /CUMM) 184 MPV (7.4 - 10.4 FL) 9.9 Gran % (42.2 - 75.2 %) 81.6 H Lymphocytes % (20.5 - 51.1 %) 7.3 L Monocytes % (1.7 - 9.3 %) 10.0 H Eosinophils % (0 - 5 %) 0.7 Basophils % (0.0 - 2.0 %) 0.4 Absolute Granulocytes (1.4 - 6.5 /CUMM) 5.3 Absolute Lymphocytes (1.2 - 3.4 /CUMM) 0.5 L Absolute Monocytes (0.10 - 0.60 /CUMM) 0.7 H Absolute Eosinophils (0.0 - 0.7 /CUMM) 0 Absolute Basophils (0.0 - 0.2 /CUMM) 0 Miscellaneous Phlebotomy Draw Site RIGHT RADIAL 05/10 6785 Chemistry Sodium (137 - 145 mmol/L) 141 Potassium (3.5 - 5.1 mmol/L) 3.3 L Chloride (98 - 107 mmol/L) 102 Carbon Dioxide (22 - 30 mmol/L) 22 Anion Gap (5 - 16) 16 BUN (7 - 17 mg/dL) 34 H Creatinine (0.5 - 1.0 mg/dL) 4.4 H Estimated GFR (>60 ml/min) 10 L BUN/Creatinine Ratio (7 - 25 %) 7.7 Glucose (65 - 99 mg/dL) 102 H Calcium (8.4 - 10.2 mg/dL) 8.5 Phosphorus (2.5 - 4.5 mg/dL) 5.1 H Magnesium (1.6 - 2.3 mg/dL) 1.9 Total Bilirubin (0.2 - 1.3 mg/dL) 0.6 Direct Bilirubin (< 0.4 mg/dL) 0.6 H AST (14 - 36 U/L) 24 ALT (9 - 52 U/L) 21 Alkaline Phosphatase (<127 U/L) 82 Troponin I (< 0.11 ng/ml) 0.04 Gra-X-Nqnveydskos Pept (<125 pg/mL) 16668 H Total Protein (6.3 - 8.2 g/dL) 6.2 L Albumin (3.5 - 5.0 g/dL) 3.8 Amylase (30 - 110 U/L) 55 Lipase (23 - 300 U/L) 89 Imaging/Other Studies: V/Q: IMPRESSION: Very low probability of pulmonary embolism. CXR: IMPRESSION: No acute pulmonary findings identified. Enlarged cardiac silhouette.
[2017-05-11] MEDS ORDERED: SYMBICORT 16010.2 GM INH ×2 (10:07→10:42)
[2017-05-11] MEDS ORDERED: PREDNISONE10 M2 PO ×3 (10:07→10:43)
[2017-05-11] MEDS ORDERED: ALBUTEROL1.25 MG/1 INH/SOL ×3 (10:09→10:43)
--- NOTE | 2017-05-11 10:11 | Patient Discharge Instructions ---
Discharge Instructions General Discharge Information You were seen/treated for: -BRONCHOSPASM 2/[address] IN THE ABSCENCE OF ASTHMA DIAGNOSIS -ESRD ON HEMODIALYSIS Special Instructions: Please f/u with plasma specialist as outpatient, call the office for appointment Acute Coronary Syndrome Inclusion Criteria At DC or during hospital stay patient has or had the following: ACS DIAGNOSIS No Discharge Core Measures Meds if any: Prescribed or Continued at Discharge Meds if any: NOT Prescribed or Continued at Discharge Congestive Heart Failure Inclusion Criteria At DC or during hospital stay patient has or had the following: CHF DIAGNOSIS No Discharge Core Measures Meds if any: Prescribed or Continued at Discharge Meds if any: NOT Prescribed or Continued at Discharge Cerebrovascular accident Inclusion Criteria At DC or during hospital stay patient has or had the following: CVA/TIA Diagnosis No Discharge Core Measures Meds if any: Prescribed or Continued at Discharge Meds if any: NOT Prescribed or Continued at Discharge Venous thromboembolism Inclusion Criteria VTE Diagnosis No VTE Type NONE VTE Confirmed by (Test) NONE Discharge Core Measures - Per Current guidelines, there needs to be overlap - treatment for the first 5 days of Warfarin therapy. - If discharged on Warfarin prior to 5 days of - overlap therapy, the patient will need to be - assessed for post discharge needs including - *Post discharge parental anticoagulation - *Warfarin and/or parental anticoagulation education - *Follow up date to check INR post discharge At least 5 days overlap therapy as Inpatient No Meds if any: Prescribed or Continued at Discharge Note: Overlap Therapy is Warfarin and Anticoagulant Meds if any: NOT Prescribed or Continued at Discharge
--- NOTE | 2017-05-11 12:41 | Cons- Cardiology ---
General Information and HPI Consulting Request Date of Consult: 05/11/17 Requested By: Beatrice Pino MD Reason for Consult: Shortness of breath Source of Information: patient, old records History of Present Illness: The patient is a very nice 56-year-old female who is well-known to me. She has an extended past the echo history including lupus, renal artery stenosis, lupus nephritis, end-stage renal disease on hemodialysis, hyperlipidemia, hypertension , prior hypertensive stroke, etc. The patient is now admitted to the hospital for further evaluation of increasing shortness of breath at rest. The patient was seen in the emergency room here at [facility] the day prior to admission. She was put on BiPAP yesterday and sent to dialysis from the emergency room. She initially felt slightly better but continued to experience shortness of breath and ultimately return to the emergency room. No other cardiac symptoms were noted. At that time, on she was treated with nebulizers, etc. Over the last 12-24 hours she has had continued improvement and is now anxious to go home. The patient denies any other cardiac symptoms at the present time. Allergies/Medications Allergies: Coded Allergies: Penicillins (Intermediate, RASH 05/10/17) erythromycin base (Intermediate, ANAPHYLAXIS 05/10/17) vancomycin (Intermediate, WHEEZING 05/10/17) Gadolinium-Containing Contrast Medi (PT ONLY HAS ONE KIDNEY - LEFT KIDNEY ) Iodinated Contrast- Oral and IV Dye (IODINATED CONTRAST MEDIA - ORAL AND) (PT HAS ONLY ONE KIDNEY - LEFT KIDNEY PER PT MED LIST 05/10/17) cefazolin (PER PT MED LIST 05/10/17) clindamycin (PER PT MED LIST 05/10/17) neomycin (PER PT MED LIST 05/10/17) Home Med List: Albuterol Sulfate 2.5 MG/3 ML (0.083 %) VIAL.NEB 1 Vial INH/GERI Q6P PRN BREATHING (Reported) Albuterol Sulfate (Proair Hfa) 90 MCG HFA.AER.AD 1-2 PUFF INH PRN ASTHMA ( Reported) Albuterol Sulfate 1.25 MG/3 ML VIAL.NEB 1 Vial INH/GERI Q4-6 PRN BRONCHOSPASM Amlodipine Besylate (Norvasc) 10 MG TABLET 1 TAB PO DAILY HTN (Reported) Ascorbate Calcium (Vitamin C) 500 MG TABLET 1 TAB PO AD SUPPLEMENT (Reported) Atorvastatin Calcium (Lipitor) 40 MG TABLET 1 TAB PO DAILY STROKE (Reported) Bioflav,Lemon/Vit Bcomp,C (Lipo-Flavonoid Plus Caplet) (Unknown Strength) TABLET (Unknown Dose) PO AD MENIERES DISEASE (Reported) Budesonide/Formoterol Fumarate (Symbicort 160-4.5 Mcg Inhaler) 160 MCG-4.5 MCG/ ACTUATION HFA.AER.AD 2 PUF INH BID BRONCHOSPASM - Calcium Carbonate (Calcium) 600 MG (1,500 MG) TABLET 1 TAB PO AD SUPPLEMENT ( Reported) Carbidopa/Levodopa (Sinemet 10-100 MG Tablet) 10 MG-100 MG TABLET 1 TAB PO DAILY PARKINSONS (Reported) Carvedilol (Coreg) 25 MG TABLET 1 TAB PO BID BP (Reported) Cholecalciferol (Vitamin D3) (Vitamin D) (Unknown Strength) TABLET (Unknown Dose) PO AD SUPPLEMENT (Reported) Clonazepam (Klonopin) 0.5 MG TABLET 1 TAB PO DAILY MENTAL (Reported) Cyanocobalamin (Vitamin B-12) 1,000 MCG TABLET 1 TAB PO DAILY SUPPLEMENT ( Reported) Ergocalciferol (Vitamin D2) (Vitamin D2) 50,000 UNIT CAPSULE 1 CAP PO Q2W SUPPLEMENT (Reported) Escitalopram Oxalate (Lexapro) 20 MG TABLET 1 TAB PO DAILY DEPRESSION ( Reported) Ferrous Gluconate (IRON) 240 MG (27 MG IRON) TABLET 1 TAB PO AD SUPPLEMENT ( Reported) Hydroxychloroquine Sulfate 200 MG TABLET 1 TAB PO DAILY LUPUS (Reported) Labetalol HCl 100 MG TABLET 1 TAB PO Q8 BP (Reported) Lacosamide (Vimpat) 200 MG TABLET 1 TAB PO QPM SEIZURES (Reported) Lacosamide (Vimpat) 100 MG TABLET 1 TAB PO QAM SEIZURES (Reported) Lactobacillus Acidophilus (Probiotic) (Unknown Strength) CAPSULE (Unknown Dose ) PO AD PROBIOTIC (Reported) Levetiracetam 500 MG/5 ML (5 ML) SOLUTION 10 ML PO MWF AFTER DIALYSIS ( Reported) Levetiracetam (Keppra) 500 MG TABLET 1 TAB PO BID SEIZURES (Reported) Levothyroxine Sodium (Synthroid) 88 MCG TABLET 1 TAB PO DAILY THYROID ( Reported) Losartan Potassium (Cozaar) 50 MG TABLET 1 TAB PO DAILY HTN (Reported) Moxifloxacin HCl (Avelox) 400 MG TABLET 1 TAB PO AD PRIOR TO DENTAL PROCEDURES (Reported) Multivitamin (Multivitamins) 1 EACH CAPSULE 1 TAB PO D HEALTH SUPPLEMENT ( Reported) Prednisone (Deltasone) 20 MG TABLET 0.5 MG PO DAILY LUPUS (Reported) Prednisone 10 MG TABLET 1 TAB PO INSTRUCTED BRONCHOSPASM TAKE 4 TABS X 1DAY TAKE 3 TABS X 1 DAY TAKE 2 TABS X 2 DAY TAKE 1 TABS X 1 DAY and then continue your daily dose of prednisone 10mg daily. Pregabalin (Lyrica) 75 MG CAPSULE 1 CAP PO DAILY PAIN (Reported) Ropinirole HCl 0.5 MG TABLET 1 TAB PO QPM RESTLESS LEGS (Reported) Tramadol HCl (Ultram) 50 MG TABLET 1 TAB PO DAILY PRN PAIN (Reported) Ubidecarenone (Co Q-10) 100 MG CAPSULE 1 CAP PO AD SUPPLEMENT (Reported) Zolpidem Tartrate (Ambien) (Unknown Strength) TABLET (Unknown Dose) PO PRN SLEEP (Reported) Current Medications: Current Medications Sig/Kathy Start time Last Medication Dose Route Stop Time Status Admin Albuterol Sulfate 3 ML BID 05/10 2200 AC 05/11 INH 1116 Albuterol Sulfate 2 PUF Q6P PRN 05/10 0900 AC INH Albuterol Sulfate 3 ML Q6P PRN 05/10 0900 AC 05/10 INH 1347 Amlodipine Besylate 10 MG DAILY 05/10 1000 AC 05/10 PO 1038 Atorvastatin Calcium 40 MG 1700 05/10 1700 AC 05/10 PO 1920 Carbidopa/Levodopa 1 TAB DAILY 05/10 1000 AC 05/10 PO 1038 Carvedilol 25 MG BID 05/10 1000 AC 05/10 PO 1038 Clonazepam 0.5 MG DAILY 05/10 1000 AC 05/10 PO 05/17 0959 1038 Cyanocobalamin 1,000 MCG DAILY 05/10 1000 AC 05/10 PO 1038 Escitalopram Oxalate 20 MG DAILY 05/10 1000 AC 05/10 PO 1038 Ferrous Gluconate 325 MG DAILY 05/10 1000 AC 05/10 PO 1038 Guaifenesin 600 MG Q12 05/10 1000 AC 05/10 PO 2221 Heparin Sodium 5,000 UNIT Q8 05/10 1400 AC 05/11 (Porcine) SC 0538 Hydroxychloroquine 200 MG DAILY 05/10 1000 AC 05/10 Sulfate PO 1038 Labetalol HCl 100 MG Q8 05/10 1400 DC PO Lacosamide 200 MG QPM 05/10 2200 AC 05/10 PO 2249 Lacosamide 100 MG QAM 05/10 1000 AC 05/10 PO 1038 Levetiracetam 1,000 MG MoWeFr 05/11 0920 AC PO Levetiracetam 10 MG MoWeFr 05/11 0918 DC PO Levetiracetam 500 MG BID 05/10 1000 AC 05/10 PO 2221 Levothyroxine Sodium 0.088 MG DAILY AC 05/10 1000 AC 05/11 PO 0538 Losartan Potassium 50 MG DAILY 05/10 1000 AC 05/10 PO 1038 Methylprednisolone 40 MG Q12 05/10 1000 AC 05/10 IV 05/11 2201 2222 Pregabalin 75 MG DAILY 05/10 1000 AC 05/10 PO 1038 Ropinirole HCl 0.5 MG QPM 05/10 2200 AC 05/10 PO 2222 Tramadol HCl 50 MG DAILY NEEDED PRN 05/10 0900 DC PO Past History Travel History Traveled to [place] past 21 day No Medical History Blood Transfusion Hx: No Neurological: CVA, restless leg syndrome, seizure, amyloid angiopathy EENT: NONE Cardiovascular: hypertension, carotid artery stenosis Respiratory: NONE Gastrointestinal: Crohn's disease, SBO requiring surg Hepatic: NONE Renal: CHRONIC KIDNEY,DIALYSIS renal artery stenosis s/p stent placement only one functioning kidney Musculoskeletal: SLE Psychiatric: NONE Endocrine: NONE Blood Disorders: NONE Cancer(s): NONE [employer]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 FH: myocardial infarction BROTHER CABG UNCLE FH: lung cancer MOTHER (DIABETES, BRAIN TUMOR). Relation not specified for: FHx: diabetes mellitus Psychosocial History Where Do You Live? Home Who Do You Live With? self Services at Home: "FINISHED WITH THOSE" Smoking Status: Never Smoked ETOH Use: denies use Functional Ability ADLs Needs Assist: bathing. IADLs Needs Assist: housework. Employment History Employment: Disability ECHO Results (as available) Report: 1. Mild aortic sclerosis is present with minimal to mild aortic insufficiency. 2. Mitral leaflet thickening is present with minimal to mild mitral insufficiency and mild left atrial dilatation. 3. A very small pericardial effusion is present. 4. The left ventricular chamber is mildly dilated with mild eccentric hypertrophy and a normal ejection fraction with no obvious resting wall motion abnormalities. 5. The right heart chambers are mildly dilated with minimal to mild tricuspid insufficiency. The RV systolic pressure was not accurately assessed. 6. Frequent ventricular ectopy was noted during the examination. Exam & Diagnostic Data Vital Signs and I&O Vital Signs Date Time Temp Pulse Resp B/P B/P Pulse O2 O2 Flow FiO2 Mean Ox Delivery Rate 05/11 1120 92 Room Air 05/11 1100 18 95 Room Air 05/11 0700 98.2 50 20 164/78 97 Nasal Cannula 05/11 0544 98 Nasal 3.0L Cannula 05/11 0131 96 Nasal 3.0L Cannula 05/10 2220 56 05/10 2215 98.2 62 20 150/68 96 05/10 2126 93 Nasal 3.0L Cannula 05/10 1919 98.0 62 18 140/61 95 Room Air Room Air 05/10 1554 98.2 55 20 186/77 96 Room Air Room Air 05/10 1348 Nasal 3.0L Cannula 05/10 1348 96 Nasal 3.0L Cannula Intake & Output 05/11 1600 05/11 0800 05/11 0000 05/10 1600 05/10 0800 05/10 0000 Intake Total 310 Output Total Balance 310 Intake, IV 10 Intake, Oral 300 Patient 205 lb 208 lb Weight Weight Bed scale Reported by Patient Measurement Method Physical Exam: General Appearance Alert, Oriented X3, Cooperative HEENT Atraumatic, PERRLA, EOMI, mucous membranes dry. Neck Supple, No JVD, carotid upstroke is normal, dialysis catheter in place Cardiovascular Regular Rate, Normal S1, Normal S2, 1 to 2/6 systolic murmur Lungs decreased air entry bilaterally. Bilateral rhonchi Abdomen Normal Bowel Sounds, Soft, No Tenderness Extremities No Clubbing, No Cyanosis, No Edema Vascular Normal Pulses, Pulses Symmetrical Labs/Deangelo Results: Laboratory Tests 05/10 05/10 0440 0435 Blood Gas pH (7.35 - 7.45 PH) 7.32 L pCO2 (35 - 45 TORR) 41 pO2 (80 - 100 TORR) 97 HCO3 (21 - 28 MEQ/L) 21 ABG O2 Sat (Measured) (>96.0 %) 94.0 L P-50 (Temp Corrected) N Carboxyhemoglobin (1.5 - 5.0 %) 1.2 L O2 Concentration % 15LPM O2 Delivery Method AMBULANCE CPAP Hematology CBC w Diff NO MAN DIFF REQ WBC (4.8 - 10.8 /CUMM) 6.5 RBC (4.20 - 5.40 /CUMM) 4.34 Hgb (12.0 - 16.0 G/DL) 11.6 L Hct (37 - 47 %) 37.3 MCV (81.0 - 99.0 FL) 85.7 MCH (27.0 - 31.0 PG) 26.8 L MCHC (33.0 - 37.0 G/DL) 31.2 L RDW (11.5 - 14.5 %) 18.3 H Plt Count (130 - 400 /CUMM) 184 MPV (7.4 - 10.4 FL) 9.9 Gran % (42.2 - 75.2 %) 81.6 H Lymphocytes % (20.5 - 51.1 %) 7.3 L Monocytes % (1.7 - 9.3 %) 10.0 H Eosinophils % (0 - 5 %) 0.7 Basophils % (0.0 - 2.0 %) 0.4 Absolute Granulocytes (1.4 - 6.5 /CUMM) 5.3 Absolute Lymphocytes (1.2 - 3.4 /CUMM) 0.5 L Absolute Monocytes (0.10 - 0.60 /CUMM) 0.7 H Absolute Eosinophils (0.0 - 0.7 /CUMM) 0 Absolute Basophils (0.0 - 0.2 /CUMM) 0 Miscellaneous Phlebotomy Draw Site RIGHT RADIAL 05/10 4715 Chemistry Sodium (137 - 145 mmol/L) 141 Potassium (3.5 - 5.1 mmol/L) 3.3 L Chloride (98 - 107 mmol/L) 102 Carbon Dioxide (22 - 30 mmol/L) 22 Anion Gap (5 - 16) 16 BUN (7 - 17 mg/dL) 34 H Creatinine (0.5 - 1.0 mg/dL) 4.4 H Estimated GFR (>60 ml/min) 10 L BUN/Creatinine Ratio (7 - 25 %) 7.7 Glucose (65 - 99 mg/dL) 102 H Calcium (8.4 - 10.2 mg/dL) 8.5 Phosphorus (2.5 - 4.5 mg/dL) 5.1 H Magnesium (1.6 - 2.3 mg/dL) 1.9 Total Bilirubin (0.2 - 1.3 mg/dL) 0.6 Direct Bilirubin (< 0.4 mg/dL) 0.6 H AST (14 - 36 U/L) 24 ALT (9 - 52 U/L) 21 Alkaline Phosphatase (<127 U/L) 82 Troponin I (< 0.11 ng/ml) 0.04 [id number] Pept (<125 pg/mL) 80750 H Total Protein (6.3 - 8.2 g/dL) 6.2 L Albumin (3.5 - 5.0 g/dL) 3.8 Amylase (30 - 110 U/L) 55 Lipase (23 - 300 U/L) 89 Assessment/Plan Assessment/Plan Assessment: 1. Worsening shortness of breath, likely multifactorial, related to underlying reactive airway disease, possible mild volume overload, etc. 2. Ventricular ectopy 3. End-stage renal disease on hemodialysis 4. History of hypertension 5. History of hypertensive stroke 6. History of seizures 7. History of lupus Recommendations: -At the Moment, I do not see any evidence of any acute cardiac issue. -Continue plans for dialysis as outlined -Continue current respiratory treatments as planned and outlined. -I will follow the patient within 2 weeks post discharge in the office. Consult Acknowledgment - Thank you for your consult request.
[2017-05-11 14:10] LABS: ABSOLUTE BASOPHIL COUNT 0 /CUMM (0.0-0.2); ABSOLUTE EOSINOPHIL COUNT 0 /CUMM (0.0-0.7); ABSOLUTE GRANULOCYTE CT 4.7 /CUMM (1.4-6.5); ABSOLUTE LYMPH COUNT 0.5 /CUMM (1.2-3.4); ABSOLUTE MONOCYTE COUNT 0.6 /CUMM (0.10-0.60); BASOPHIL % 0.4 % (0.0-2.0); EOSINOPHIL % 0 % (0-5); GRANULOCYTE % 80.8 % (42.2-75.2); HEMATOCRIT 34.8 % (37-47); MEAN CORPUSCULAR HGB CONC 31.9 G/DL (33.0-37.0); MEAN CORPUSCULAR VOLUME 84.5 FL (81.0-99.0); MEAN PLATELET VOLUME 10.2 FL (7.4-10.4); PLATELET COUNT 184 /CUMM (130-400); RED BLOOD CELL CT 4.12 /CUMM (4.20-5.40); WHITE BLOOD CELL COUNT 5.8 /CUMM (4.8-10.8)
[2017-05-11 14:50] VITALS: BP 162/72
[2017-05-11 18:39] VITALS: BP 140/70
== END 2017-05-11 18:55 | DRG 202 ==
LOC: ERH 04:02 → ERHI 06:27 → 1NO 06:27 → ENRESERV 18:46 → ENTRNSPT 20:03 → EDTRNSPTSTS 20:15 → 1NO 20:30 → CMPTRNSPT 21:04 → 1NO 05-11 07:51 → ENPENDDIS 05-11 13:52 → 1NO 05-11 18:55
PROVIDERS: Internal Medicine Nephrology; Pediatrics
PROC: 5A1D70Z Performance of Urinary Filtration, Intermittent, Less than 6 Hours Per Day (ICD-10-PCS; principal; 2017-05-11)
DX: J45.909 Unspecified asthma, uncomplicated (principal); N18.6 End stage renal disease; E87.2 Acidosis; I12.0 Hypertensive chronic kidney disease with stage 5 chronic kidney disease or end stage renal disease; M32.14 Glomerular disease in systemic lupus erythematosus; I48.2 Chronic atrial fibrillation; I16.1 Hypertensive emergency; G40.909 Epilepsy, unspecified, not intractable, without status epilepticus; Z79.01 Long term (current) use of anticoagulants; Z99.2 Dependence on renal dialysis; Z86.73 Personal history of transient ischemic attack (TIA), and cerebral infarction without residual deficits; G25.81 Restless legs syndrome
CPT/HCPCS: 1NP; 71045; 78582; 82436; 86803; 87040; 87804; 87804-59; 93005; 93010; 97116-GO; 97161-GP; 97530-GO; 99291; A9540; A9558; J0636; J0885; J1644; J2920; J3490